=== PATIENT | female | born 1950 ===

== ENCOUNTER 2025-05-09 12:03 | Outpatient (AMB) | payer MEDICARE, SELFPAY ==
--- OUTSIDE RECORDS SUMMARY | 2024-02-22 05:00 | XMS_ITS ---
Author Organization [facility] [address] Address [address] [place] [address] Care Team Providers Care Vehicle Maintenance Technician Name Role Phone VASYL BURGESS Unavailable [phone] Encounters Encounter Location Date Provider Diagnosis [facility] [address] [place] [address] 02/22/2024 AMRYANNEERLINDA BURGESS Plan Of Treatment Next Appt Details Provider Name:VASYL BURGESS, 11:15:00 AM, [address], [place], [address], Progress Notes * GEGEMartin JERRYJalilB: (74 yo F)Acc No.[id number]:02/22/2024 Progress Note Patient: Brigette Guadalupe Provider: Lorena BURGESS MD :1950 A ge:73 Y S ex:Female Date:02/22/2024 Address:[address], [facility] Care Plan Details* * Electronic signature of TEO BURGESS on 05/09/2025 at 06:24 PM EST Sign off status: Pending * Provider: Lorena BURGESS MD Date: 0 02/22/2024 Generated for Marshall ford/Shade/eTransmitting on: 1 07/10/2024 06:24 PM EST
--- OUTSIDE RECORDS SUMMARY | 2025-03-06 05:15 | XMS_ITS ---
Author Organization [facility] [address] Address [address] [place] [address] Care Team Providers Care Battery Container Tester Name Role Phone VASYL BURGESS Unavailable [phone] Encounters Encounter Location Date Provider Diagnosis [facility] [address] [place] [address] 03/06/2025 MARYANNEERLINDA BURGESS Plan Of Treatment Next Appt Details Provider Name:VASYL BURGESS, 11:15:00 AM, [address], [place], [address], Progress Notes * GEGEMartin BONILLAJalilB: 9 (74 yo F)Acc No.[id number]:03/06/2025 Progress Note Patient: Brigette Guadalupe Provider: Lorena BURGESS MD :1950 A ge:74 Y S ex:Female Date:03/06/2025 Address:[address], [facility] Care Plan Details* * Electronic signature of TEO BURGESS on 05/09/2025 at 06:24 PM EST Sign off status: Pending * Provider: Lorena BURGESS MD Date: Generated for Marshall ford/Shade/eTángelasmitting on: 07/10/2024 06:24 PM EST
--- NOTE | 2025-05-09 12:06 | A.OFFVIS_ITS ---
Vital Signs 05/09/25 12:40 BP 127/85 Position Sitting Pulse 87 Intake Visit Reasons: 6M DEMENTIA Allergies benzonatate Allergy (Unknown, Verified 05/09/25 12:16) Unknown codeine Allergy (Unknown, Verified 05/09/25 12:16) Unknown divalproex sodium (From Depakote) Allergy (Unknown, Verified 05/09/25 12:16) Unknown furosemide Allergy (Unknown, Verified 05/09/25 12:16) Unknown gabapentin Allergy (Unknown, Verified 05/09/25 12:16) Unknown levofloxacin (From Levaquin) Allergy (Unknown, Verified 05/09/25 12:16) Unknown lisinopril (From Zestril) Allergy (Unknown, Verified 05/09/25 12:16) Unknown Penicillins Allergy (Unknown, Verified 05/09/25 12:16) Unknown prednisone Allergy (Unknown, Verified 05/09/25 12:16) Unknown Sulfa (Sulfonamide Antibiotics) Allergy (Unknown, Verified 05/09/25 12:16) Unknown triamterene Allergy (Unknown, Verified 05/09/25 12:16) Unknown Medication List - Last Reconciled 05/09/25 by Carolann Riddle, KUSHAL alprazolam 0.5 mg PO BID 90 days atenolol 50 mg PO BID atorvastatin 20 mg PO DAILY bumetanide mg PO dapagliflozin propanediol (Farxiga) 5 mg PO DAILY estradiol 1 mg PO DAILY irbesartan 150 mg PO DAILY levothyroxine 75 mcg PO QAM pantoprazole 40 mg PO DAILY potassium chloride ER 20 mEq PO DAILY rivaroxaban (Xarelto) 20 mg PO DAILY spironolactone 25 mg PO DAILY HPI Comments Details: She was here with new concern. She reports passing out at home on 05/05/2025. She was talking to her while making the bed when her noticed that she suddenly stopped talking, fell forward onto the bed and then slid off onto the ground. She did not hit her head. She remembers coming to and hearing her 's voice, but everything was black. She is unsure how long she passed out for, but was very brief, likely few seconds to less than a minute. She was very tired afterward, but no confusion. No tongue bite or incontinence. She denies any associated symptoms such as dizziness, chest pain, or palpitations. She says her defibrillator did not go off. She is apparently due for a reading soon with cardiology. She denies any episodes of passing out in the past. No further episodes. She also complains of a static ?hash ?sound in her ears that started around 08/2024 and is fairly constant. The noise is more noticeable when it is quiet. No change in hearing. Tremors were stable. No functional impairment. No difficulty eating, drinking, swallowing. She was under some stress related to her family. Increased photosensitivity ongoing after dilated eye exam with 1% tropicamide and 2.5% phenylephrine. Had trouble looking at bright lights, like headlights or brake lights on cars, especially at night. No double vision, blurred vision, or issues with vision otherwise. Her is very suspicious and sometimes keeps threatening divorce. She is having short term memory problems. Had defib. replaced and since then her memory is worse. Has some word searching difficulties. Had a cardiac arrest in November 2018 at the [facility] and has pacemaker and defib. She had a cardiac arrest with coma in April of 2010. She had a sudden onset of garbled speech and difficulty swallowing water on January 09, 2014 shortly after waking up. She had 2 CAT scans of the head and a carotid ultrasound. CTA of neck and brain was normal. CT brain showed old inferior right occipital infarct. Her symptoms improved over several hours and she feels fine and back to normal. She has an implanted defibrillator pacemaker. She has no previous history of stroke or TIA. [facility] Medical History (Updated 05/09/25 @ 12:40 by Carolann Riddle CNP) Hypertension Hypercholesteremia Hypothyroidism Migraine History of AL (myocardial infarction) MCI (mild cognitive impairment) Cerebral artery occlusion with cerebral infarction Tremor Surgical History (Updated 05/09/25 @ 12:13 by Carolann Riddle CNP) S/P ICD (internal cardiac defibrillator) procedure Review of Systems Const Denies chills, Denies daytime sleepiness, Denies difficulty sleeping, Reports fatigue, Denies fever(s), Denies frequent falls, Denies headache(s), Denies increased appetite, Denies poor appetite, Denies snoring, Denies weakness, Denies weight gain and Denies weight loss Eyes Denies loss of vision ENT Denies vertigo, Denies dizziness, Denies headache(s), Denies neck pain and Reports tinnitus Card Denies chest pain at rest, Denies chest pain with activity, Denies syncope, Reports leg edema, Denies palpitations, Denies dyspnea and Denies dyspnea on exertion Resp Denies cough, Denies dyspnea, Denies dyspnea on exertion and Denies snoring GI Denies abdominal pain, Denies constipation, Denies heartburn, Denies diarrhea and Denies nausea Denies urinary frequency, Denies urinary incontinence and Denies urinary urgency Musc Denies abnormal gait, Denies back pain, Denies myalgias, Denies arthralgias, D enies neck pain, Denies numbness and Denies tingling Neuro Denies abnormal gait, Denies vertigo, Denies dizziness, Denies syncope, Denies frequent falls, Denies headache(s), Denies lack of coordination, Denies loss of vision, Denies memory loss, Denies numbness, Denies Other visual disturbances, Denies restless legs, Denies seizure-like activity, Denies tingling, Denies pa resthesias, Reports tremor(s) and Denies weakness Psych Denies anxiety, Denies depression, Denies auditory hallucinations, Denies memory loss and Denies visual hallucinations Endo Reports fatigue and Denies palpitations Physical Exam Vital Signs: Last Vital Signs Pulse 87 05/09/25 12:40 BP 127/85 05/09/25 12:40 Const Other: General Appearance:? normal, in no acute distress. Heart:? S1, S2 normal, no murmurs. Lungs:? clear anteriorly and posteriorly. Musculoskeletal:? normal. Extremities:? no edema. Psych:? alert, oriented, cognitive function intact, cooperative with exam. Neuro Other: Abnormal Neurological Findings:?none.? Mental Status: alert and oriented X 3. Normal attention, orientation, memory, and affect. Cranial Nerves: Pupils are equal, round, and reactive to light. External ocular muscles are intact. Visual vincent are full, no ptosis. Face is symmetrical, no facial weakness or droop. Facial sensations are normal. Tongue protrudes in midline. Palate elevates symmetrically. Shoulder shrugging is normal Motor Examination: Normal muscle tone, bulk and strength. No atrophy or fasciculations. No drift of the extended upper extremities. DTR 2+. Plantars are flexor. Sensory Exam: Normal light touch, temperature, pinprick, vibration, and joint- position sensations. Rhomberg sign is absent. Coordination: No ataxia. No titubation. Gait Exam: Within normal limits. Cerebellar Signs: [id number]-br-haic is okay. Extrapyramidal System: No tremor, rigidity with normal facial expressions. No bradykinesia. No bradyphrenia. Normal arm swing and posture. No propulsion or retropulsion. Speech: Normal. Results Reviewed Results Reviewed: 02/27/20 TSH 9.52 MRI Brain at [facility] 10/30/2024: Multiple WM lesions, old R occipital lobe infarct Assessment & Plan Assessment & Plan (1) Syncope: Code(s): R55 - Syncope and collapse Category: Medical Qualifiers: Syncope type: unspecified Qualified Code(s): R55 - Syncope and collapse Plan: 74-year-old woman with history of cardiac arrest x2 (04/2010, 11/2018), S/P defibrillator, and history of stroke who reports syncopal episode on 05/05/2025. Given her significant cardiac history, possible cardiac etiology should be further evaluated. I recommended 48-72 hour Holter monitor, which she declined despite education, and reports that she is apparently due for device reading w [facility] cardiology soon. I advised her to contact die cast die maker and inform them of this event also. EEG and CTA head/neck ordered. Follow-up after testing or sooner as needed. (2) Tremor: Code(s): R25.1 - Tremor, unspecified Category: Medical Plan: Continue alprazolam 0.5mg 1 tablet twice a day #180 for 90 days. (3) History of cerebral artery occlusion: Code(s): Z86.79 - Personal history of other diseases of the circulatory system Category: Medical (4) History of stroke: Comment: R occipital infarct Code(s): Z86.73 - Personal history of transient ischemic attack (TIA), and cerebral infarction without residual deficits Category: Medical (5) MCI (mild cognitive impairment): Code(s): G31.84 - Mild cognitive impairment of uncertain or unknown etiology Category: Medical Plan . Orders: Orders CT angio head neck Today R55 - Syncope and collapse, Z86.79 - Personal history of other diseases of the circulatory system EEG Routine Today R55 - Syncope and collapse, Z86.79 - Personal history of other diseases of the circulatory system Blood Urea Nitrogen Today R55 - Syncope and collapse Creatinine Today R55 - Syncope and collapse Coding Level of Care Code Est Pt Level 5 (52043) Diagnoses Syncope, unspecified syncope type R55 Syncope type: unspecified Tremor R25.1 History of cerebral artery occlusion Z86.79 History of stroke Z86.73 MCI (mild cognitive impairment) G31.84 Time Spent (min) 45
[2025-05-09 12:40] VITALS: BP 127/85; PULSE 87
--- OUTSIDE RECORDS SUMMARY | 2025-05-09 18:24 | XMS_ITS | Encounter Summary ---
Author Organization [facility] Address [address] [place] [address] Care Team Providers Care Percussion Instrument Repairer Name Role Phone Ro Ramirez MD Primary Care Provider [phone] Encounter Details Date Type Department Care Team ([facility] st Contact Info) Description 03/18/2025 Results Follow-Up Gastroenterology - [place] [address] [facility] [address] [facility] [address] [place] [id number] Yary Moralez PA [address] [place] [address] Social History Tobacco Use Types Packs/Day Years Used Date Smoking Tobacco: Former Smokeless Tobacco: Never Alcohol Use Standard Drinks/Week Comments Yes 0 (1 standard drink = 0.6 oz pur e alcohol) Rarely Interpersonal Safety Answer Date Record ed Physical Abuse Unrecognized value 12/21/2024 Verbal Abuse Unrecognized value 12/21/2024 Comments No Sex and Gender Information Value Date Recorded Sex Assigned at Female 03/18/2025 10:23 AM EDT Legal Sex Female 3:45 AM EST Gender Identity Female 12/11/2024 8:07 AM EDT Sexual Orientation Not on file documented as of this encounter Progress Notes * DEMETRIA Rosas - 04/15/2025 3:43 PM EST Please call patient let her know that I had a chance to go over her CAT scan of abdomen/pelvis, andit was pretty good from GI standpoint, she did have a mild constipation, there was also some arthritis related to age, but nothing acute. Advised her to increase fluid and fiber intake. TY * DEMETIRA Rosas - 03/18/2025 11:08 AM EDT Please call patient let her know that her kidney function test got a little bit worse from 46 to 41, advised her to be hydrated. Follow-up with PCP. Maybe at some point, she will have to contact PCP to get referral commercial green retrofit architect. I am not sure if she is seeing someone already. TY documented in this encounter Plan of Treatment Upcoming Encounters Date Type Department Care Team (Late st Contact Info) Description 06/27/2025 3:00 PM EST Ancillary Procedure [facility] [address] [facility] [address] [place] [address] 10/02/2025 1:20 PM EDT Office Visit Gastroenterology - [address] [facility] [address] [place] [address] Yary Moralez PA [address] [facility] [address] [place] [address] documented as of this encounter Visit Diagnoses Not on filedocumented in this encounter Care Teams Percussion Instrument Repairer Relationship Specialty Start Date End Date Ro Ramirez MD [address] [place] [address] PCP - General Internal Medicine 09/24/24 documented as of this encounter
--- OUTSIDE RECORDS SUMMARY | 2025-05-09 18:24 | XMS_ITS | Continuity of Care Document ---
Author Organization [facility] [address] [place] [address] Phone [phone] Social History Type Date Description Comments Sex Female Sex Unknown Medical Devices Description No Information Available Encounters Description No Information Available Assessments Description No Information Available Plan of Treatment No Information Available Functional Status Description No Information Available Mental Status Description No Information Available Referrals Description No Information Available
--- OUTSIDE RECORDS SUMMARY | 2025-05-09 18:24 | XMS_ITS | Patient Health Record ---
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 doctors appointments. #Patient reports chronic epigastric discomfort, will be getting H. pylori testing as well as be making an appointment with a GI. She gives a vague history of seeing a GI but not recalling the recommendation. On the note from GI it seems she was recommended for follow-up after H. pylori testing. #Patient had therapeutic right-sided thoracocentesis for right-sided effusion in January 2021,She is established with Dr Monroy. #Hypothyroidism,Ad vised patient to take the medication first thing in the morning empty stomach and avoid anything to eat or drink for 45 minutes. Patient has been taking the medication along with other pills at nighttime. TSH is elevated at 3.4, patient has noticed her hair falling out. We are increasing the dose from 50 mcg to 75 mcg on February 09 with follow-up in 2 months. #Past medical history of cardiac arrest twiceStatus post pacemaker placement, status post pacemaker. established with tariff compiler. #Gives history of stroke with residual weakness.Is established with neurologist. 10/31/2024 Epigastric pain (ICD-10 - R10.13) Patient lives with her , has a son living in [place] and grandchildren. Patient reports getting involved with the grandkids, taking them to their doctors appointments. #Patient reports chronic epigastric discomfort, will be getting H. pylori testing as well as be making an appointment with a GI. She gives a vague history of seeing a GI but not recalling the recommendation. On the note from GI it seems she was recommended for follow-up after H. pylori testing. She never had the H. pylori test done says she is currently on pantoprazole and is unable to come off at all for more than 2 days. She has an upcoming appointment with GI for follow-up. She will be seen for abdominal discomfort/epigast niurka pain and weight loss. #Patient had therapeutic right-sided thoracocentesis for right-sided effusion in January 2021,She is established with Dr Monroy.She gets follow-up CAT scan chest. #Hypothyroidism,Ad vised patient to take the medication first thing in the morning empty stomach and avoid anything to eat or drink for 45 minutes. Patient has been taking the medication along with other pills at nighttime. TSH within within normal limits T4 slightly elevated, recommended patient to take levothyroxine 75 mcg 6 days a week instead of 7 days a week/discussed in October 2024. #Past medical history of cardiac arrest twiceStatus post pacemaker placement, status post pacemaker. established with tariff compiler. #Gives history of stroke with residual weakness.Is established with neurologist.Recent ly has vision issues and had an MRI yesterday, report is still pending. 10/31/2024 Weight loss (ICD-10 - R63.4) Patient lives with her , has a son living in [place] and grandchildren. Patient reports getting involved with the grandkids, taking them to their doctors appointments. #Patient reports chronic epigastric discomfort, will be getting H. pylori testing as well as be making an appointment with a GI. She gives a vague history of seeing a GI but not recalling the recommendation. On the note from GI it seems she was recommended for follow-up after H. pylori testing. She never had the H. pylori test done says she is currently on pantoprazole and is unable to come off at all for more than 2 days. She has an upcoming appointment with GI for follow-up. She will be seen for abdominal discomfort/epigast niurka pain and weight loss. #Patient had therapeutic right-sided thoracocentesis for right-sided effusion in January 2021,She is established with Dr Monroy.She gets follow-up CAT scan chest. #Hypothyroidism,Ad vised patient to take the medication first thing in the morning empty stomach and avoid anything to eat or drink for 45 minutes. Patient has been taking the medication along with other pills at nighttime. TSH within within normal limits T4 slightly elevated, recommended patient to take levothyroxine 75 mcg 6 days a week instead of 7 days a week/discussed in October 2024. #Past medical history of cardiac arrest twiceStatus post pacemaker placement, status post pacemaker. established with tariff compiler. #Gives history of stroke with residual weakness.Is established with neurologist.Recent ly has vision issues and had an MRI yesterday, report is still pending. 09/19/2024 Magnesium deficiency (ICD-10 - E61.2) Patient lives with her , has a son living in [place] and grandchildren. Patient reports getting involved with the grandkids, taking them to their doctors appointments. #Patient reports chronic epigastric discomfort, will be getting H. pylori testing as well as be making an appointment with a GI. She gives a vague history of seeing a GI but not recalling the recommendation. On the note from GI it seems she was recommended for follow-up after H. pylori testing. #Patient had therapeutic right-sided thoracocentesis for right-sided effusion in January 2021,She is established with Dr Monroy. #Hypothyroidism,Ad vised patient to take the medication first thing in the morning empty stomach and avoid anything to eat or drink for 45 minutes. Patient has been taking the medication along with other pills at nighttime. TSH is elevated at 3.4, patient has noticed her hair falling out. We are increasing the dose from 50 mcg to 75 mcg on February 09 with follow-up in 2 months. #Past medical history of cardiac arrest twiceStatus post pacemaker placement, status post pacemaker. established with tariff compiler. #Gives history of stroke with residual weakness.Is established with neurologist. 09/19/2024 Elevated C-reactive protein (CRP) (ICD-10 - R79.82) Patient lives with her , has a son living in [place] and grandchildren. Patient reports getting involved with the grandkids, taking them to their doctors appointments. #Patient reports chronic epigastric discomfort, will be getting H. pylori testing as well as be making an appointment with a GI. She gives a vague history of seeing a GI but not recalling the recommendation. On the note from GI it seems she was recommended for follow-up after H. pylori testing. #Patient had therapeutic right-sided thoracocentesis for right-sided effusion in January 2021,She is established with Dr Monroy. #Hypothyroidism,Ad vised patient to take the medication first thing in the morning empty stomach and avoid anything to eat or drink for 45 minutes. Patient has been taking the medication along with other pills at nighttime. TSH is elevated at 3.4, patient has noticed her hair falling out. We are increasing the dose from 50 mcg to 75 mcg on February 09 with follow-up in 2 months. #Past medical history of cardiac arrest twiceStatus post pacemaker placement, status post pacemaker. established with tariff compiler. #Gives history of stroke with residual weakness.Is established with neurologist. 09/19/2024 Adult general medical exam (ICD-10 - Z00.00) Patient lives with her , has a son living in [place] and grandchildren. Patient reports getting involved with the grandkids, taking them to their doctors appointments. #Patient reports chronic epigastric discomfort, will be getting H. pylori testing as well as be making an appointment with a GI. She gives a vague history of seeing a GI but not recalling the recommendation. On the note from GI it seems she was recommended for follow-up after H. pylori testing. #Patient had therapeutic right-sided thoracocentesis for right-sided effusion in January 2021,She is established with Dr Monroy. #Hypothyroidism,Ad vised patient to take the medication first thing in the morning empty stomach and avoid anything to eat or drink for 45 minutes. Patient has been taking the medication along with other pills at nighttime. TSH is elevated at 3.4, patient has noticed her hair falling out. We are increasing the dose from 50 mcg to 75 mcg on February 09 with follow-up in 2 months. #Past medical history of cardiac arrest twiceStatus post pacemaker placement, status post pacemaker. established with tariff compiler. #Gives history of stroke with residual weakness.Is established with neurologist. 09/19/2024 Vitamin D deficiency, unspecified (ICD-10 - E55.9) Patient lives with her , has a son living in [place] and grandchildren. Patient reports getting involved with the grandkids, taking them to their doctors appointments. #Patient reports chronic epigastric discomfort, will be getting H. pylori testing as well as be making an appointment with a GI. She gives a vague history of seeing a GI but not recalling the recommendation. On the note from GI it seems she was recommended for follow-up after H. pylori testing. #Patient had therapeutic right-sided thoracocentesis for right-sided effusion in January 2021,She is established with Dr Monroy. #Hypothyroidism,Ad vised patient to take the medication first thing in the morning empty stomach and avoid anything to eat or drink for 45 minutes. Patient has been taking the medication along with other pills at nighttime. TSH is elevated at 3.4, patient has noticed her hair falling out. We are increasing the dose from 50 mcg to 75 mcg on February 09 with follow-up in 2 months. #Past medical history of cardiac arrest twiceStatus post pacemaker placement, status post pacemaker. established with tariff compiler. #Gives history of stroke with residual weakness.Is established with neurologist. 09/19/2024 Epigastric pain (ICD-10 - R10.13) Patient lives with her , has a son living in [place] and grandchildren. Patient reports getting involved with the grandkids, taking them to their doctors appointments. #Patient reports chronic epigastric discomfort, will be getting H. pylori testing as well as be making an appointment with a GI. She gives a vague history of seeing a GI but not recalling the recommendation. On the note from GI it seems she was recommended for follow-up after H. pylori testing. #Patient had therapeutic right-sided thoracocentesis for right-sided effusion in January 2021,She is established with Dr Monroy. #Hypothyroidism,Ad vised patient to take the medication first thing in the morning empty stomach and avoid anything to eat or drink for 45 minutes. Patient has been taking the medication along with other pills at nighttime. TSH is elevated at 3.4, patient has noticed her hair falling out. We are increasing the dose from 50 mcg to 75 mcg on February 09 with follow-up in 2 months. #Past medical history of cardiac arrest twiceStatus post pacemaker placement, status post pacemaker. established with tariff compiler. #Gives history of stroke with residual weakness.Is established with neurologist. Plan Of Treatment Pending Test Test Name Order Date Ultrasound : Abdomen 09/04/2020 Bone Density 10/12/2021 COMPREHENSIVE METABOLIC PANEL 10/10/2020 HEMOGLOBIN A1C 10/10/2020 MAGNESIUM 09/09/2020 POTASSIUM 11/25/2020 POTASSIUM 09/09/2020 T3, FREE 10/10/2020 T4, FREE 10/10/2020 TSH 10/10/2020 BNP (B -Type Natriuretic Peptide) 2021 CT Abdomen w and w/o Contrast 12/24/2020 CT Chest w and w/o Contrast 03/16/2021 CT Chest w/o Contrast 03/17/2021 XR Chest 2 Views 08/21/2021 XR Foot 2 Views RT 09/22/2022 LIPID PANEL, STANDARD 03/28/2023 LIPID PANEL, STANDARD 10/12/2021 COMPREHENSIVE METABOLIC PANEL 09/22/2022 COMPREHENSIVE METABOLIC PANEL 06/23/2022 COMPREHENSIVE METABOLIC PANEL 10/12/2021 COMPREHENSIVE METABOLIC PANEL 08/21/2021 COMPREHENSIVE METABOLIC PANEL 09/19/2024 COMPREHENSIVE METABOLIC PANEL 03/28/2023 COMPREHENSIVE METABOLIC PANEL 10/19/2023 COMPREHENSIVE METABOLIC PANEL 03/14/2024 COMPREHENSIVE METABOLIC PANEL 10/31/2024 CREATININE 10/19/2023 POTASSIUM 03/28/2023 POTASSIUM 10/19/2023 MAGNESIUM 10/19/2023 MAGNESIUM 08/21/2021 MAGNESIUM 03/28/2023 MAGNESIUM 10/31/2024 CBC (INCLUDES DIFF/PLT) 10/19/2023 CBC (INCLUDES DIFF/PLT) 03/28/2023 CBC (INCLUDES DIFF/PLT) 09/19/2024 CBC (INCLUDES DIFF/PLT) 08/21/2021 CBC (INCLUDES DIFF/PLT) 10/12/2021 CBC (INCLUDES DIFF/PLT) 06/23/2022 HEMOGLOBIN A1c 10/12/2021 T4, FREE 10/12/2021 T4, FREE 02/09/2023 T4, FREE 01/23/2024 TSH 01/25/2024 TSH 03/14/2024 TSH 02/09/2023 TSH 09/22/2022 TSH 06/23/2022 TSH 10/12/2021 T3, FREE 02/09/2023 T3, FREE 01/23/2024 VITAMIN D,25-OH,TOTAL,IA 09/19/2024 VITAMIN D,25-OH,TOTAL,IA 10/19/2023 VITAMIN D,25-OH,TOTAL,IA 09/22/2022 VITAMIN D,25-OH,TOTAL,IA 10/12/2021 B TYPE NATRIURETIC PEPTIDE (BNP) 022 H PYLORI BREATH TEST 09/19/2024 TSH+T3+Free T4+T3 Free 10/31/2024 TSH+T3+Free T4+T3 Free 09/19/2024 Future Test Test Name Order Date BASIC METABOLIC PANEL 02/25/2021 TSH 02/25/2021 Next Appt Details Provider Name:VASYL BURGESS, 11:15:00 AM, [address], [place], [address], Insurance Providers Payer Name Payer Address Payer Phone Subscriber Number Group Number Insured Name Patient Relationship to Insured Coverage Start Date Coverage End Date Medicare Part B [id number] [address] [place] [address] [phone] [id number] Brigette Kahn Self - patient is the insured 4 [facility] [address] [place] [address] [id number] Brigette Kahn Self - patient is the insured Medical (General) History Medical History History ICD Code hypertension hyperlipidemia seasonal allergies asthma pacemaker multiple sclerosis Surgical History Surgery Date(Month/Year) cardiac pacemeker 2018 hysterectomy Hospitalization History Reason Date(Month/Year) heart attack cardiac arrests fall/concussion 02/2023
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
--- OUTSIDE RECORDS SUMMARY | 2025-05-09 18:26 | XMS_ITS ---
Author Name [facility] Organization Unknown Encounters Encounter Type Encounter Reason Primary Diagnosis Location Date Ambulatory [facility] 12/25/2024 Ambulatory [facility] 03/27/2024 Care Team Organization Name Specialty Phone Email Start Date End Da te [facility] 2024 [facility] 12/15/2023 [facility] 10/04/2022
--- OUTSIDE RECORDS SUMMARY | 2025-05-09 18:26 | XMS_ITS | Data Portability ---
Author Organization [facility], Main Office Address [address] [place] [address] Care Team Providers Care Cyber Crime Investigator Name Role Phone CABRERA GERMAIN Primary Care Provider [phone] DELIA FALLON Adjunct Professor Of English FRANCISCO ANDRADE Orthopedic Surgeon [phone] AMELIE JONES Neurologist [phone] DUKE LUCAS Powerhouse Mechanic KESHIA FRANCISCO JR Antisqueak Worker [phone] Assessment Encounter Date Assessment Date Assessment LastModified by Organization Details LastModified Time 08/16/2019 08/16/2019 This service was provided using telemedicine. Patient consented to phone/video visit. Patient was located at home. Provider was located at home. No other persons participated in the telemedicine visit except for the patient unless otherwise indicated here. [email or web address] Not available 08/16/2019 11:23:57 06/18/2020 06/18/2020 This service was provided using telemedicine. Patient consented to telephone visit Patient was located at at home Provider was located in the office. No other persons participated in the telemedicine visit except for the patient unless otherwise indicated here. Total time of visit was 23 minutes. [email or web address] Not available 06/18/2020 13:42:54 Plan of Treatment Reminders Order Date Submit Date Provider Last Modified By Organization Details Last Modified Time Details Appointments None record ed. Lab BMP, serum or plasma 2020 021 GERARDO [facility] (Centralized Electronic Ordering - All Locations), Patient Can Go To The Location Of Their Choice, [id number] 20:53:33 CBC w/ auto diff 2020 GERARDO [facility] (Centralized Electronic Ordering - All Locations), Patient Can Go To The Location Of Their Choice, 19:57:23 hepati c functi on panel, serum 2020 GERARDO [facility] (Centralized Electronic Ordering - All Locations), Patient Can Go To The Location Of Their Choice, 20:53:35 Referral gastro entero logist referr al - epigas tric pain despit e pantop razole 2020 jennifer Francisco Jr, MD, [address] [place] [address] [place], [address], 14:36:13 podiat rist referr al - right foot planta r fascia tis. evalua te and treat [email or web address] [facility], [address] [facility], [facility] [address], [place], [address], 14:13:57 physic al therap ist referr al - right foot planta r fascia tis, evalua te and treat, unable to get out of house please provid e home physic al therap y 2020 021 [email or web address] [facility], [address] [place], [address], 09:16:15 gastro entero logist referr al - mid abdomi nal pain, rul eout ulcer, nl CT abd 2019 020 jennifer Francisco Jr, MD, [address] [place] [address] [place], [address], 0 09:43:35 gastro entero logist referr al - abdomi nal pain ,weigh t loss 2019 021 [email or web address] Jennifer Castillo MD, [address] [facility] [address], [place], [address], 1 09:49:13 Procedures None record ed. Surgeries None record ed. Imaging electr ocardi ogram 2020 021 esther sims In-Office Order, Internal Use Only DO Not Attach Compendium DO Not Attach Compendium, Do Not Delete/merge, [id number] 1 13:46:01 US, abdome n - RUQ and mid epigat niurka pain rule out galbla dder pathol ogy 2020 021 [facility] (Ultrasound), [address] [place], [address], 1 11:02:00 CT, abdome n + pelvis , w/ contra st - abdomi nal pain, weight loss, rule out mass 2019 020 [facility] (Ct Scan), [address] [place], [address], 0 22:59:11 Medication Orders pantop razole 40 mg tablet ,delay ed releas e 2020 021 [facility] [address], [address] [place] [address], [address], 1 13:55:34 potass ium chlori de ER 20 mEq tablet ,exten ded releas e 2019 020 esther sims [facility] [address], [address] [place] [address], [address], 0 13:04:49 Patient TargetsNo targets recorded. Patient Instructions Encounter Date Encounter Id Patient Instructions Last Modified By Organization Details Last Modified Time 11/02/2019 [id number] hypothyroidism: care instructions [email or web address] Not available 11/02/2019 14:46:27 12/06/2019 [id number] abdominal pain: care instructions [email or web address] Not available 12/06/2019 15:16:08 high blood pressure: care instructions [email or web address] Not available 12/06/2019 15:16:08 learning about h igh blood pressure [email or web address] Not available 12/06/2019 15:16:08 multiple scleros is (MS): care instructions [email or web address] Not available 12/06/2019 15:16:08 high cholesterol : care instructions [email or web address] Not available 12/06/2019 15:16:08 06/18/2020 [id number] gastroesophageal reflux disease (GERD): care instructions [email or web address] Not available 06/18/2020 13:55:25 Reason for Referral Antisqueak Worker Referral for Upper abdominal pain abdominal pain ,weight loss Referring Physician: Cabrera Germain [facility], Encounter Date: 11/02/2019 Antisqueak Worker Referral for Abdominal pain mid abdominal pain, rul eout ulcer, nl CT abd Referring Physician: Cabrera Germain [facility], Encounter Date: 12/06/2019 Hybrid Car Mechanic Referral for Plan tar fasciitis of right foot right foot plantar fasciatis. evaluate and treat Referring Physician: Cabrera Germain [facility], Encounter Date: 06/18/2020 Physical Therapist Referral for Plantar fasciitis of right foot right foot plantar fasciatis, evaluate and treat, unable to get out of house please provide home physical therapy Referring Physician: Cabrera Germain [facility], Encounter Date: 06/18/2020 Antisqueak Worker Referral for Epigastric pain epigastric pain despite pantoprazole Referring Physician: Cabrera Germain [facility], Encounter Date: 08/07/2020 Results Created Date Observation Date Name Description Value Unit Range Abnormal Flag Note LastModifiedBy Organization Detail LastModifiedTime 07/26/19 20 2019 BMP, serum or plasm a glucose 93 mg/dL (70-99 ) Not Available [facility] (Centralized Electronic Ordering - All Locations) Patient Can Go To The Location Of Their Choice, [id number] 2019 17:46:06 07/26/19 20 2019 BMP, serum or plasm a BUN 14 mg/dL (8-23) Not Available [facility] (Centralized Electronic Ordering - All Locations) Patient Can Go To The Location Of Their Choice, 2019 17:46:07/26/1907/26/2019 BMP, serum or plasm a creatinine 1.0 mg/dL (0.5-1 .0) Not Available [facility] (Centralized Electronic Ordering - All Locations) Patient Can Go To The Location Of Their Choice, 2019 17:46:07/26/1907/26/2019 BMP, serum or plasm a sodium 142 mmol/ L (133-1 45) Not Available [facility] (Centralized Electronic Ordering - All Locations) Patient Can Go To The Location Of Their Choice, 2019 17:46:07/26/1907/26/2019 BMP, serum or plasm a potassium 3.7 mmol/ L (3.6-5 .2) Not Available [facility] (Centralized Electronic Ordering - All Locations) Patient Can Go To The Location Of Their Choice, 2019 17:46:07/26/1907/26/2019 BMP, serum or plasm a chloride 101 mmol/ L (98-10 7) Not Available [facility] (Centralized Electronic Ordering - All Locations) Patient Can Go To The Location Of Their Choice, 2019 17:46:07/26/1907/26/2019 BMP, serum or plasm a bicarbonate 27 mmol/ L (22-29 ) Not Available [facility] (Centralized Electronic Ordering - All Locations) Patient Can Go To The Location Of Their Choice, 2019 17:46:07/26/1907/26/2019 BMP, serum or plasm a anion gap 14 (4-17) Not Available [facility] (Centralized Electronic Ordering - All Locations) Patient Can Go To The Location Of Their Choice, 2019 17:46:07/26/1907/26/2019 BMP, serum or plasm a calcium 8.4 mg/dL (8.6-1 0.5) low Not Available [facility] (Centralized Electronic Ordering - All Locations) Patient Can Go To The Location Of Their Choice, 2019 17:46:07/26/1907/26/2019 BMP, serum or plasm a est GFR non 57 mL/mi n/1.7 3_M2 Creat inine based estim ated glome rular filtr ation rate (eGFR ) is calcu lated using the Chron ic Kidne y Disea se Epide miolo gy Colla borat ion (CKD- EPI). The CKD-E PI creat inine equat ion has not been valid ated in child spencer (<18 years ), pregn ant women or in some racia l or ethni c subgr oups other than Cauca sians and Afric an Ameri cans. Not Available [facility] (Centralized Electronic Ordering - All Locations) Patient Can Go To The Location Of Their Choice, 2019 17:46:06 07/26/1907/26/2019 BMP, serum or plasm a est GFR 66 mL/mi n/1.7 3_M2 Creat inine based estim ated glome rular filtr ation rate (eGFR ) is calcu lated using the Chron ic Kidne y Disea se Epide miolo gy Colla borat ion (CKD- EPI). The CKD-E PI creat inine equat ion has not been valid ated in child spencer (<18 years ), pregn ant women or in some racia l or ethni c subgr oups other than Cauca sians and Afric an Ameri cans. Not Available [facility] (Centralized Electronic Ordering - All Locations) Patient Can Go To The Location Of Their Choice, 2019 17:46:06 07/26/1907/26/2019 T4, free, serum free T4 2.29 NG/dL (0.70- 1.80) high Not Available [facility] (Centralized Electronic Ordering - All Locations) Patient Can Go To The Location Of Their Choice, 2019 17:56:22 07/26/1907/26/2019 TSH, serum or plasm a TSH 3.01 mIU/m L (0.40- 4.00) Not Available [facility] (Centralized Electronic Ordering - All Locations) Patient Can Go To The Location Of Their Choice, 2019 17:56:24 08/15/19 20 08/15/2019 BMP, serum or plasm a glucose 146 mg/dL (70-99 ) high Not Available [facility] (Centralized Electronic Ordering - All Locations) Patient Can Go To The Location Of Their Choice, 08/15/2019 19:10:08/15/1908/15/2019 BMP, serum or plasm a BUN 13 mg/dL (8-23) Not Available [facility] (Centralized Electronic Ordering - All Locations) Patient Can Go To The Location Of Their Choice, 08/15/2019 19:10:08/15/1908/15/2019 BMP, serum or plasm a creatinine 1.0 mg/dL (0.5-1 .0) Not Available [facility] (Centralized Electronic Ordering - All Locations) Patient Can Go To The Location Of Their Choice, 08/15/2019 19:10:08/15/1908/15/2019 BMP, serum or plasm a sodium 143 mmol/ L (133-1 45) Not Available [facility] (Centralized Electronic Ordering - All Locations) Patient Can Go To The Location Of Their Choice, 08/15/2019 19:10:08/15/1908/15/2019 BMP, serum or plasm a potassium 3.5 mmol/ L (3.6-5 .2) low Not Available [facility] (Centralized Electronic Ordering - All Locations) Patient Can Go To The Location Of Their Choice, 08/15/2019 19:10:08/15/1908/15/2019 BMP, serum or plasm a chloride 100 mmol/ L (98-10 7) Not Available [facility] (Centralized Electronic Ordering - All Locations) Patient Can Go To The Location Of Their Choice, 08/15/2019 19:10:08/15/1908/15/2019 BMP, serum or plasm a bicarbonate 31 mmol/ L (22-29 ) high Not Available [facility] (Centralized Electronic Ordering - All Locations) Patient Can Go To The Location Of Their Choice, 08/15/2019 19:10:08/15/1908/15/2019 BMP, serum or plasm a anion gap 12 (4-17) Not Available [facility] (Centralized Electronic Ordering - All Locations) Patient Can Go To The Location Of Their Choice, 08/15/2019 19:10:08/15/1908/15/2019 BMP, serum or plasm a calcium 8.3 mg/dL (8.6-1 0.5) low Not Available [facility] (Centralized Electronic Ordering - All Locations) Patient Can Go To The Location Of Their Choice, 08/15/2019 19:10:16 08/15/1908/15/2019 BMP, serum or plasm a est GFR non 57 mL/mi n/1.7 3_M2 Creat inine based estim ated glome rular filtr ation rate (eGFR ) is calcu lated using the Chron ic Kidne y Disea se Epide miolo gy Colla borat ion (CKD- EPI). The CKD-E PI creat inine equat ion has not been valid ated in child spencer (<18 years ), pregn ant women or in some racia l or ethni c subgr oups other than Cauca sians and Afric an Ameri cans. Not Available [facility] (Centralized Electronic Ordering - All Locations) Patient Can Go To The Location Of Their Choice, 08/15/2019 19:10:16 08/15/1908/15/2019 BMP, serum or plasm a est GFR 66 mL/mi n/1.7 3_M2 Creat inine based estim ated glome rular filtr ation rate (eGFR ) is calcu lated using the Chron ic Kidne y Disea se Epide miolo gy Colla borat ion (CKD- EPI). The CKD-E PI creat inine equat ion has not been valid ated in child spencer (<18 years ), pregn ant women or in some racia l or ethni c subgr oups other than Cauca sians and Afric an Ameri cans. Not Available [facility] (Centralized Electronic Ordering - All Locations) Patient Can Go To The Location Of Their Choice, 08/15/2019 19:10:16 09/27/1909/27/2019 BMP, serum or plasm a glucose 108 mg/dL (70-99 ) high Not Available [facility] (Centralized Electronic Ordering - All Locations) Patient Can Go To The Location Of Their Choice, 09/27/2019 18:35:46 09/27/1909/27/2019 BMP, serum or plasm a BUN 18 mg/dL (8-23) Not Available [facility] (Centralized Electronic Ordering - All Locations) Patient Can Go To The Location Of Their Choice, 09/27/2019 18:35:46 09/27/1909/27/2019 BMP, serum or plasm a creatinine 1.2 mg/dL (0.5-1 .0) high Not Available [facility] (Centralized Electronic Ordering - All Locations) Patient Can Go To The Location Of Their Choice, 09/27/2019 18:35:46 09/27/1909/27/2019 BMP, serum or plasm a sodium 139 mmol/ L (133-1 45) Not Available [facility] (Centralized Electronic Ordering - All Locations) Patient Can Go To The Location Of Their Choice, 09/27/2019 18:35:46 09/27/1909/27/2019 BMP, serum or plasm a potassium 4.0 mmol/ L (3.6-5 .2) Not Available [facility] (Centralized Electronic Ordering - All Locations) Patient Can Go To The Location Of Their Choice, 09/27/2019 18:35:46 09/27/1909/27/2019 BMP, serum or plasm a chloride 98 mmol/ L (98-10 7) Not Available [facility] (Centralized Electronic Ordering - All Locations) Patient Can Go To The Location Of Their Choice, 09/27/2019 18:35:46 09/27/1909/27/2019 BMP, serum or plasm a bicarbonate 28 mmol/ L (22-29 ) Not Available [facility] (Centralized Electronic Ordering - All Locations) Patient Can Go To The Location Of Their Choice, 09/27/2019 18:35:46 09/27/1909/27/2019 BMP, serum or plasm a anion gap 13 (4-17) Not Available [facility] (Centralized Electronic Ordering - All Locations) Patient Can Go To The Location Of Their Choice, 09/27/2019 18:35:46 09/27/1909/27/2019 BMP, serum or plasm a calcium 8.6 mg/dL (8.6-1 0.5) Not Available [facility] (Centralized Electronic Ordering - All Locations) Patient Can Go To The Location Of Their Choice, 09/27/2019 18:35:46 09/27/1909/27/2019 BMP, serum or plasm a est GFR non 45 mL/mi n/1.7 3_M2 Creat inine based estim ated glome rular filtr ation rate (eGFR ) is calcu lated using the Chron ic Kidne y Disea se Epide miolo gy Colla borat ion (CKD- EPI). The CKD-E PI creat inine equat ion has not been valid ated in child spencer (<18 years ), pregn ant women or in some racia l or ethni c subgr oups other than Cauca sians and Afric an Ameri cans. Not Available [facility] (Centralized Electronic Ordering - All Locations) Patient Can Go To The Location Of Their Choice, 09/27/2019 18:35:46 09/27/1909/27/2019 BMP, serum or plasm a est GFR 53 mL/mi n/1.7 3_M2 Creat inine based estim ated glome rular filtr ation rate (eGFR ) is calcu lated using the Chron ic Kidne y Disea se Epide miolo gy Colla borat ion (CKD- EPI). The CKD-E PI creat inine equat ion has not been valid ated in child spencer (<18 years ), pregn ant women or in some racia l or ethni c subgr oups other than Cauca sians and Afric an Ameri cans. Not Available [facility] (Centralized Electronic Ordering - All Locations) Patient Can Go To The Location Of Their Choice, 09/27/2019 18:35:46 11/01/1911/01/2019 potas sium, serum potassium 4.1 mmol/ L (3.6-5 .2) Not Available [facility] (Centralized Electronic Ordering - All Locations) Patient Can Go To The Location Of Their Choice, 11/01/2019 20:38:46 11/01/1911/01/2019 BMP, serum or plasm a glucose 108 mg/dL (70-99 ) high Not Available [facility] (Centralized Electronic Ordering - All Locations) Patient Can Go To The Location Of Their Choice, 11/01/2019 20:38:54 11/01/1911/01/2019 BMP, serum or plasm a BUN 18 mg/dL (8-23) Not Available [facility] (Centralized Electronic Ordering - All Locations) Patient Can Go To The Location Of Their Choice, 11/01/2019 20:38:54 11/01/1911/01/2019 BMP, serum or plasm a creatinine 1.1 mg/dL (0.5-1 .0) high Not Available [facility] (Centralized Electronic Ordering - All Locations) Patient Can Go To The Location Of Their Choice, 11/01/2019 20:38:54 11/01/1911/01/2019 BMP, serum or plasm a sodium 141 mmol/ L (133-1 45) Not Available [facility] (Centralized Electronic Ordering - All Locations) Patient Can Go To The Location Of Their Choice, 11/01/2019 20:38:54 11/01/1911/01/2019 BMP, serum or plasm a potassium 4.1 mmol/ L (3.6-5 .2) Not Available [facility] (Centralized Electronic Ordering - All Locations) Patient Can Go To The Location Of Their Choice, 11/01/2019 20:38:54 11/01/1911/01/2019 BMP, serum or plasm a chloride 99 mmol/ L (98-10 7) Not Available [facility] (Centralized Electronic Ordering - All Locations) Patient Can Go To The Location Of Their Choice, 11/01/2019 20:38:54 11/01/1911/01/2019 BMP, serum or plasm a bicarbonate 27 mmol/ L (22-29 ) Not Available [facility] (Centralized Electronic Ordering - All Locations) Patient Can Go To The Location Of Their Choice, 11/01/2019 20:38:54 11/01/1911/01/2019 BMP, serum or plasm a anion gap 15 (4-17) Not Available [facility] (Centralized Electronic Ordering - All Locations) Patient Can Go To The Location Of Their Choice, 11/01/2019 20:38:54 11/01/1911/01/2019 BMP, serum or plasm a calcium 8.9 mg/dL (8.6-1 0.5) Not Available [facility] (Centralized Electronic Ordering - All Locations) Patient Can Go To The Location Of Their Choice, 11/01/2019 20:38:54 11/01/1911/01/2019 BMP, serum or plasm a est GFR non 50 mL/mi n/1.7 3_M2 Creat inine based estim ated glome rular filtr ation rate (eGFR ) is calcu lated using the Chron ic Kidne y Disea se Epide miolo gy Colla borat ion (CKD- EPI). The CKD-E PI creat inine equat ion has not been valid ated in child spencer (<18 years ), pregn ant women or in some racia l or ethni c subgr oups other than Cauca sians and Afric an Ameri cans. Not Available [facility] (Centralized Electronic Ordering - All Locations) Patient Can Go To The Location Of Their Choice, 11/01/2019 20:38:54 11/01/1911/01/2019 BMP, serum or plasm a est GFR 58 mL/mi n/1.7 3_M2 Creat inine based estim ated glome rular filtr ation rate (eGFR ) is calcu lated using the Chron ic Kidne y Disea se Epide miolo gy Colla borat ion (CKD- EPI). The CKD-E PI creat inine equat ion has not been valid ated in child spencer (<18 years ), pregn ant women or in some racia l or ethni c subgr oups other than Cauca sians and Afric an Ameri cans. Not Available [facility] (Centralized Electronic Ordering - All Locations) Patient Can Go To The Location Of Their Choice, 11/01/2019 20:38:54 11/01/1911/02/2019 hepat ic funct ion panel , serum bilirubin,to guadalupe 0.6 mg/dL (0-1.2 ) Not Available [facility] ([facility]ized Electronic Ordering - All Locations) Patient Can Go To The Location Of Their Choice, 11/02/2019 18:29:37 11/01/1911/02/2019 hepat ic funct ion panel , serum bilirubin, direct 0.2 mg/dL (0-0.3 ) Not Available [facility] ([facility]ized Electronic Ordering - All Locations) Patient Can Go To The Location Of Their Choice, 11/02/2019 18:29:37 11/01/1911/02/2019 hepat ic funct ion panel , serum indirect bilirubin 0.4 mg/dL (0.0-0 .7) Not Available [facility] ([facility]ized Electronic Ordering - All Locations) Patient Can Go To The Location Of Their Choice, 11/02/2019 18:29:37 11/01/1911/02/2019 hepat ic funct ion panel , serum albumin 3.7 gm/dL (3.4-4 .8) Not Available [facility] (Centralized Electronic Ordering - All Locations) Patient Can Go To The Location Of Their Choice, 11/02/2019 18:29:37 11/01/1911/02/2019 hepat ic funct ion panel , serum AST 45 U/L (0-32) high Not Available [facility] (Centralized Electronic Ordering - All Locations) Patient Can Go To The Location Of Their Choice, 11/02/2019 18:29:37 11/01/1911/02/2019 hepat ic funct ion panel , serum ALT 34 U/L (0-33) high Not Available [facility] ([facility]ized Electronic Ordering - All Locations) Patient Can Go To The Location Of Their Choice, 11/02/2019 18:29:37 11/01/1911/02/2019 hepat ic funct ion panel , serum alk phos 138 U/L (35-10 4) high Not Available [facility] ([facility]ized Electronic Ordering - All Locations) Patient Can Go To The Location Of Their Choice, 11/02/2019 18:29:37 11/01/1911/02/2019 hepat ic funct ion panel , serum total protein 7.0 gm/dL (6.2-8 .2) Not Available [facility] ([facility]ized Electronic Ordering - All Locations) Patient Can Go To The Location Of Their Choice, 11/02/2019 18:29:37 02/26/2002/26/2020 BMP, serum or plasm a glucose 99 mg/dL (70-99 ) Not Available [facility] ([facility]ized Electronic Ordering - All Locations) Patient Can Go To The Location Of Their Choice, 02/26/2020 21:51:35 02/26/2002/26/2020 BMP, serum or plasm a BUN 21 mg/dL (8-23) Not Available [facility] ([facility]ized Electronic Ordering - All Locations) Patient Can Go To The Location Of Their Choice, 02/26/2020 21:51:35 02/26/2002/26/2020 BMP, serum or plasm a creatinine 1.5 mg/dL (0.5-1 .0) high Not Available [facility] ([facility]ized Electronic Ordering - All Locations) Patient Can Go To The Location Of Their Choice, 02/26/2020 21:51:35 02/26/2002/26/2020 BMP, serum or plasm a sodium 142 mmol/ L (133-1 45) Not Available [facility] (Centralized Electronic Ordering - All Locations) Patient Can Go To The Location Of Their Choice, 02/26/2020 21:51:35 02/26/2002/26/2020 BMP, serum or plasm a potassium 4.7 mmol/ L (3.6-5 .2) Not Available [facility] (Centralized Electronic Ordering - All Locations) Patient Can Go To The Location Of Their Choice, 02/26/2020 21:51:35 02/26/2002/26/2020 BMP, serum or plasm a chloride 99 mmol/ L (98-10 7) Not Available [facility] ([facility]ized Electronic Ordering - All Locations) Patient Can Go To The Location Of Their Choice, 02/26/2020 21:51:35 02/26/2002/26/2020 BMP, serum or plasm a bicarbonate 31 mmol/ L (22-29 ) high Not Available [facility] ([facility]ized Electronic Ordering - All Locations) Patient Can Go To The Location Of Their Choice, 02/26/2020 21:51:35 02/26/2002/26/2020 BMP, serum or plasm a anion gap 12 (4-17) Not Available [facility] ([facility]ized Electronic Ordering - All Locations) Patient Can Go To The Location Of Their Choice, 02/26/2020 21:51:35 02/26/2002/26/2020 BMP, serum or plasm a calcium 8.8 mg/dL (8.6-1 0.5) Not Available [facility] ([facility]ized Electronic Ordering - All Locations) Patient Can Go To The Location Of Their Choice, 02/26/2020 21:51:35 02/26/2002/26/2020 BMP, serum or plasm a est GFR non 34 mL/mi n/1.7 3_M2 Creat inine based estim ated glome rular filtr ation rate (eGFR ) is calcu lated using the Chron ic Kidne y Disea se Epide miolo gy Colla borat ion (CKD- EPI). The CKD-E PI creat inine equat ion has not been valid ated in child spencre (<18 years ), pregn ant women or in some racia l or ethni c subgr oups other than Cauca sians and Afric an Ameri cans. Not Available [facility] (Centralized Electronic Ordering - All Locations) Patient Can Go To The Location Of Their Choice, 02/26/2020 21:51:35 02/26/2002/26/2020 BMP, serum or plasm a est GFR 40 mL/mi n/1.7 3_M2 Creat inine based estim ated glome rular filtr ation rate (eGFR ) is calcu lated using the Chron ic Kidne y Disea se Epide miolo gy Colla borat ion (CKD- EPI). The CKD-E PI creat inine equat ion has not been valid ated in child spencer (<18 years ), pregn ant women or in some racia l or ethni c subgr oups other than Cauca sians and Afric an Ameri cans. Not Available [facility] (Centralized Electronic Ordering - All Locations) Patient Can Go To The Location Of Their Choice, 02/26/2020 21:51:35 02/26/2002/27/2020 hepat ic funct ion panel , serum bilirubin,to guadalupe 0.5 mg/dL (0-1.2 ) Not Available [facility] (Centralized Electronic Ordering - All Locations) Patient Can Go To The Location Of Their Choice, 02/27/2020 06:03:45 02/26/2002/27/2020 hepat ic funct ion panel , serum bilirubin, direct <0.1 mg/dL (0-0.3 ) Not Available [facility] ([facility]ized Electronic Ordering - All Locations) Patient Can Go To The Location Of Their Choice, 02/27/2020 06:03:45 02/26/2002/27/2020 hepat ic funct ion panel , serum indirect bilirubin mg/dL (0.0-0 .7) Direc t bilir ubin is less than the measu reabl e limit . There fore, indir ect bilir ubin canno t be calcu lated . Not Available [facility] (Centralized Electronic Ordering - All Locations) Patient Can Go To The Location Of Their Choice, 02/27/2020 06:03:45 02/26/2002/27/2020 hepat ic funct ion panel , serum albumin 3.8 gm/dL (3.4-4 .8) Not Available [facility] (Centralized Electronic Ordering - All Locations) Patient Can Go To The Location Of Their Choice, 02/27/2020 06:03:45 02/26/2002/27/2020 hepat ic funct ion panel , serum AST 40 U/L (0-32) high Not Available [facility] (Centralized Electronic Ordering - All Locations) Patient Can Go To The Location Of Their Choice, 02/27/2020 06:03:45 02/26/2002/27/2020 hepat ic funct ion panel , serum ALT 26 U/L (0-33) Not Available [facility] (Centralized Electronic Ordering - All Locations) Patient Can Go To The Location Of Their Choice, 02/27/2020 06:03:45 02/26/2002/27/2020 hepat ic funct ion panel , serum alk phos 126 U/L (35-10 4) high Not Available [facility] (Centralized Electronic Ordering - All Locations) Patient Can Go To The Location Of Their Choice, 02/27/2020 06:03:45 02/26/2002/27/2020 hepat ic funct ion panel , serum total protein 6.9 gm/dL (6.2-8 .2) Not Available [facility] (Centralized Electronic Ordering - All Locations) Patient Can Go To The Location Of Their Choice, 02/27/2020 06:03:45 08/08/1908/07/2020 CBC w/ auto diff WBC 9.1 K/mm3 (4.0-1 1.0) Not Available [facility] (Centralized Electronic Ordering - All Locations) Patient Can Go To The Location Of Their Choice, 08/07/2020 19:57:23 08/08/1908/07/2020 CBC w/ auto diff RBC 4.33 M/mm3 (4.20- 5.40) Not Available [facility] (Centralized Electronic Ordering - All Locations) Patient Can Go To The Location Of Their Choice, 08/07/2020 19:57:23 08/08/1908/07/2020 CBC w/ auto diff HGB 11.7 gm/dL (11.7- 15.5) Not Available [facility] (Centralized Electronic Ordering - All Locations) Patient Can Go To The Location Of Their Choice, 08/07/2020 19:57:23 08/08/1908/07/2020 CBC w/ auto diff HCT 38.6 % (35.7- 45.8) Not Available [facility] (Centralized Electronic Ordering - All Locations) Patient Can Go To The Location Of Their Choice, 08/07/2020 19:57:23 08/08/1908/07/2020 CBC w/ auto diff MCV 89.1 fL (80.0- 100.0) Not Available [facility] (Centralized Electronic Ordering - All Locations) Patient Can Go To The Location Of Their Choice, 08/07/2020 19:57:23 08/08/1908/07/2020 CBC w/ auto diff MCH 27.0 pg (27.0- 34.0) Not Available [facility] (Centralized Electronic Ordering - All Locations) Patient Can Go To The Location Of Their Choice, 08/07/2020 19:57:23 08/08/1908/07/2020 CBC w/ auto diff MCHC 30.3 g/dL (33.0- 37.0) low Not Available [facility] (Centralized Electronic Ordering - All Locations) Patient Can Go To The Location Of Their Choice, 08/07/2020 19:57:23 08/08/1908/07/2020 CBC w/ auto diff plt 221 K/mm3 (150-4 60) Not Available [facility] (Centralized Electronic Ordering - All Locations) Patient Can Go To The Location Of Their Choice, 08/07/2020 19:57:23 08/08/1908/07/2020 CBC w/ auto diff RDW-SD 54.9 fL (<47.0 ) high Not Available [facility] (Centralized Electronic Ordering - All Locations) Patient Can Go To The Location Of Their Choice, 08/07/2020 19:57:23 08/08/1908/07/2020 CBC w/ auto diff MPV 10.9 fL (9.4-1 2.4) Not Available [facility] (Centralized Electronic Ordering - All Locations) Patient Can Go To The Location Of Their Choice, 08/07/2020 19:57:23 08/08/1908/07/2020 CBC w/ auto diff automated NRBC 0.0 #/100 _WBC' s Not Available [facility] (Centralized Electronic Ordering - All Locations) Patient Can Go To The Location Of Their Choice, 08/07/2020 19:57:23 08/08/1908/07/2020 CBC w/ auto diff abs. NRBC 0.0 K/mm3 Not Available [facility] (Centralized Electronic Ordering - All Locations) Patient Can Go To The Location Of Their Choice, 08/07/2020 19:57:23 08/08/1908/07/2020 BMP, serum or plasm a glucose 91 mg/dL (70-99 ) Not Available [facility] (Centralized Electronic Ordering - All Locations) Patient Can Go To The Location Of Their Choice, 08/07/2020 20:53:33 08/08/1908/07/2020 BMP, serum or plasm a BUN 20 mg/dL (8-23) Not Available [facility] (Centralized Electronic Ordering - All Locations) Patient Can Go To The Location Of Their Choice, 08/07/2020 20:53:33 08/08/1908/07/2020 BMP, serum or plasm a creatinine 1.2 mg/dL (0.5-1 .0) high Not Available [facility] (Centralized Electronic Ordering - All Locations) Patient Can Go To The Location Of Their Choice, 08/07/2020 20:53:33 08/08/1908/07/2020 BMP, serum or plasm a sodium 140 mmol/ L (133-1 45) Not Available [facility] (Centralized Electronic Ordering - All Locations) Patient Can Go To The Location Of Their Choice, 08/07/2020 20:53:33 08/08/1908/07/2020 BMP, serum or plasm a potassium 3.3 mmol/ L (3.6-5 .2) low Not Available [facility] (Centralized Electronic Ordering - All Locations) Patient Can Go To The Location Of Their Choice, 08/07/2020 20:53:33 08/08/1908/07/2020 BMP, serum or plasm a chloride 99 mmol/ L (98-10 7) Not Available [facility] (Centralized Electronic Ordering - All Locations) Patient Can Go To The Location Of Their Choice, 08/07/2020 20:53:33 08/08/1908/07/2020 BMP, serum or plasm a bicarbonate 28 mmol/ L (22-29 ) Not Available [facility] (Centralized Electronic Ordering - All Locations) Patient Can Go To The Location Of Their Choice, 08/07/2020 20:53:33 08/08/1908/07/2020 BMP, serum or plasm a anion gap 13 (4-17) Not Available [facility] (Centralized Electronic Ordering - All Locations) Patient Can Go To The Location Of Their Choice, 08/07/2020 20:53:33 08/08/1908/07/2020 BMP, serum or plasm a calcium 8.6 mg/dL (8.6-1 0.5) Not Available [facility] (Centralized Electronic Ordering - All Locations) Patient Can Go To The Location Of Their Choice, 08/07/2020 20:53:33 08/08/1908/07/2020 BMP, serum or plasm a est GFR non 45 mL/mi n/1.7 3_M2 Creat inine based estim ated glome rular filtr ation rate (eGFR ) is calcu lated using the Chron ic Kidne y Disea se Epide miolo gy Colla borat ion (CKD- EPI). The CKD-E PI creat inine equat ion has not been valid ated in child spencer (<18 years ), pregn ant women or in some racia l or ethni c subgr oups other than Cauca sians and Afric an Ameri cans. Not Available [facility] (Centralized Electronic Ordering - All Locations) Patient Can Go To The Location Of Their Choice, 08/07/2020 20:53:33 08/08/1908/07/2020 BMP, serum or plasm a est GFR 52 mL/mi n/1.7 3_M2 Creat inine based estim ated glome rular filtr ation rate (eGFR ) is calcu lated using the Chron ic Kidne y Disea se Epide miolo gy Colla borat ion (CKD- EPI). The CKD-E PI creat inine equat ion has not been valid ated in child spencer (<18 years ), pregn ant women or in some racia l or ethni c subgr oups other than Cauca sians and Afric an Ameri cans. Not Available [facility] (Centralized Electronic Ordering - All Locations) Patient Can Go To The Location Of Their Choice, 08/07/2020 20:53:33 08/08/1908/07/2020 hepat ic funct ion panel , serum bilirubin,to guadalupe 0.5 mg/dL (0-1.2 ) Not Available [facility] (Centralized Electronic Ordering - All Locations) Patient Can Go To The Location Of Their Choice, 08/07/2020 20:53:35 08/08/19 21 08/07/2020 hepat ic funct ion panel , serum bilirubin, direct <0.2 mg/dL (0-0.3 ) Not Available [facility] (Centralized Electronic Ordering - All Locations) Patient Can Go To The Location Of Their Choice, 08/07/2020 20:53:35 08/08/19 21 08/07/2020 hepat ic funct ion panel , serum indirect bilirubin mg/dL (0.0-0 .7) Direc t bilir ubin is less than the measu reabl e limit . There fore, indir ect bilir ubin canno t be calcu lated . Not Available [facility] (Centralized Electronic Ordering - All Locations) Patient Can Go To The Location Of Their Choice, 08/07/2020 20:53:35 08/08/19 21 08/07/2020 hepat ic funct ion panel , serum albumin 3.7 gm/dL (3.4-4 .8) Not Available [facility] (Centralized Electronic Ordering - All Locations) Patient Can Go To The Location Of Their Choice, 08/07/2020 20:53:35 08/08/19 21 08/07/2020 hepat ic funct ion panel , serum AST 29 U/L (0-32) Not Available [facility] (Centralized Electronic Ordering - All Locations) Patient Can Go To The Location Of Their Choice, 08/07/2020 20:53:35 08/08/19 21 08/07/2020 hepat ic funct ion panel , serum ALT 21 U/L (0-33) Not Available [facility] (Centralized Electronic Ordering - All Locations) Patient Can Go To The Location Of Their Choice, 08/07/2020 20:53:35 08/08/19 21 08/07/2020 hepat ic funct ion panel , serum alk phos 113 U/L (35-10 4) high Not Available [facility] (Centralized Electronic Ordering - All Locations) Patient Can Go To The Location Of Their Choice, 08/07/2020 20:53:35 08/08/19 21 08/07/2020 hepat ic funct ion panel , serum total protein 7.0 gm/dL (6.2-8 .2) Not Available [facility] (Centralized Electronic Ordering - All Locations) Patient Can Go To The Location Of Their Choice, 08/07/2020 20:53:35 08/08/1908/07/2020 nellie richard am done Not Available In-Office Order Internal Use Only DO Not Attach Compendium DO Not Attach Compendium, Do Not Delete/merge, [id number] 08/07/2020 13:04:53 04/14/2004/14/2022 BASIC METAB OLIC PANEL glucose 84 mg/dL (70-99 ) Not Available [facility] (Centralized Electronic Ordering - All Locations) Patient Can Go To The Location Of Their Choice, 04/14/2022 22:27:43 04/14/20 22 04/14/2022 BASIC METAB OLIC PANEL BUN 23 mg/dL (8-23) Not Available [facility] (Centralized Electronic Ordering - All Locations) Patient Can Go To The Location Of Their Choice, 04/14/2022 22:27:43 04/14/20 22 04/14/2022 BASIC METAB OLIC PANEL creatinine 1.1 mg/dL (0.5-1 .0) high Not Available [facility] (Centralized Electronic Ordering - All Locations) Patient Can Go To The Location Of Their Choice, 04/14/2022 22:27:43 04/14/2004/14/2022 BASIC METAB OLIC PANEL sodium 140 mmol/ L (133-1 45) Not Available [facility] (Centralized Electronic Ordering - All Locations) Patient Can Go To The Location Of Their Choice, 04/14/2022 22:27:43 04/14/2004/14/2022 BASIC METAB OLIC PANEL potassium 4.3 mmol/ L (3.6-5 .2) Not Available [facility] (Centralized Electronic Ordering - All Locations) Patient Can Go To The Location Of Their Choice, 04/14/2022 22:27:43 04/14/2004/14/2022 BASIC METAB OLIC PANEL chloride 100 mmol/ L (98-10 7) Not Available [facility] (Centralized Electronic Ordering - All Locations) Patient Can Go To The Location Of Their Choice, 04/14/2022 22:27:43 04/14/2004/14/2022 BASIC METAB OLIC PANEL bicarbonate 32 mmol/ L (22-29 ) high Not Available [facility] (Centralized Electronic Ordering - All Locations) Patient Can Go To The Location Of Their Choice, 04/14/2022 22:27:43 04/14/2004/14/2022 BASIC METAB OLIC PANEL anion gap 8 (4-17) Not Available [facility] (Centralized Electronic Ordering - All Locations) Patient Can Go To The Location Of Their Choice, 04/14/2022 22:27:43 04/14/2004/14/2022 BASIC METAB OLIC PANEL calcium 9.4 mg/dL (8.6-1 0.5) Not Available [facility] (Centralized Electronic Ordering - All Locations) Patient Can Go To The Location Of Their Choice, 04/14/2022 22:27:43 04/14/2004/14/2022 BASIC METAB OLIC PANEL estimated GFR creatinine 51 mL/mi n/1.7 3_M2 Creat inine based estim ated elderme january forte ation (eGFR ) in adult s is calcu lated using the Natio nal Kidne y Found ation recom amber d 2020 CKD-E PI equat ion. Estim ates GFR from serum creat inine , age and sex. Not Available [facility] (Centralized Electronic Ordering - All Locations) Patient Can Go To The Location Of Their Choice, 04/14/2022 22:27:43 03/28/2003/28/2023 BASIC METAB OLIC PANEL glucose 109 mg/dL (70-99 ) high Not Available [facility] (Centralized Electronic Ordering - All Locations) Patient Can Go To The Location Of Their Choice, 03/28/2023 22:04:47 03/28/2003/28/2023 BASIC METAB OLIC PANEL BUN 20 mg/dL (8-23) Not Available [facility] (Centralized Electronic Ordering - All Locations) Patient Can Go To The Location Of Their Choice, 03/28/2023 22:04:47 03/28/2003/28/2023 BASIC METAB OLIC PANEL creatinine 1.3 mg/dL (0.5-1 .0) high Not Available [facility] (Centralized Electronic Ordering - All Locations) Patient Can Go To The Location Of Their Choice, 03/28/2023 22:04:47 03/28/2003/28/2023 BASIC METAB OLIC PANEL sodium 139 mmol/ L (133-1 45) Not Available [facility] (Centralized Electronic Ordering - All Locations) Patient Can Go To The Location Of Their Choice, 03/28/2023 22:04:47 03/28/2003/28/2023 BASIC METAB OLIC PANEL potassium 4.2 mmol/ L (3.6-5 .2) Not Available [facility] (Centralized Electronic Ordering - All Locations) Patient Can Go To The Location Of Their Choice, 03/28/2023 22:04:47 03/28/2003/28/2023 BASIC METAB OLIC PANEL chloride 98 mmol/ L (98-10 7) Not Available [facility] (Centralized Electronic Ordering - All Locations) Patient Can Go To The Location Of Their Choice, 03/28/2023 22:04:47 03/28/2003/28/2023 BASIC METAB OLIC PANEL bicarbonate 27 mmol/ L (22-29 ) Not Available [facility] (Centralized Electronic Ordering - All Locations) Patient Can Go To The Location Of Their Choice, [id number] 03/28/2023 22:04:47 03/28/20 23 03/28/2023 BASIC METAB OLIC PANEL anion gap 14 (4-17) Not Available [facility] (Centralized Electronic Ordering - All Locations) Patient Can Go To The Location Of Their Choice, [id number] 03/28/2023 22:04:47 03/28/2003/28/2023 BASIC METAB OLIC PANEL calcium 9.3 mg/dL (8.6-1 0.5) Not Available [facility] (Centralized Electronic Ordering - All Locations) Patient Can Go To The Location Of Their Choice, [id number] 03/28/2023 22:04:47 03/28/2003/28/2023 BASIC METAB OLIC PANEL estimated GFR creatinine 45 mL/mi n/1.7 3_M2 Creat inine based estim ated glome rular filtr ation (eGFR ) in adult s is calcu lated using the Natio nal Kidne y Found ation recom amber d 2020 CKD-E PI equat ion. Estim ates GFR from serum creat inine , age and sex. Not Available [facility] (Centralized Electronic Ordering - All Locations) Patient Can Go To The Location Of Their Choice, [id number] 03/28/2023 22:04:47 08/01/19 20 07/18/2019 devic e check (PROC ) No observ ation record ed. [email or web address] z [facility] [address] [place], [address], 08/01/2019 14:40:00 11/01/19 20 10/16/2019 pacem marva check (PROC ) No observ ation record ed. [email or web address] [facility] [address] [place], [address], 11/02/2019 16:44:45 11/13/19 20 11/13/2019 CT, abdom en + pelvi s, w/ contr ast CT Abd/Pe lvis W/ IV + Oral Contra st Reason : upper abdomi nal pain; Clinic al Questi on(s): Other: . TECHNI QUE: Spiral CT throug h the abdome n and pelvis with IV contra st format viet in 3 planes . 100 cc Isovue -300 was admini stered intrav enousl y. The study was perfor med with oral contra st. Weight -based protoc ol using automa tic tube modula tion was used to optimi ze exposu re parame ters. CTDIvo l Body: 11.64 mGy, DLP Body: 505 mGy*cm . COMPAR BI: 07/07/19 18 from [facility] al FINDIN GS: Access Specialist View Findin gs, Lines and Tubes: None. Visual ized Chest: Lung bases have mild atelec tasis or scars. Pacema ker wire is again seen. Trace right pleura l effusi on, decrea sed since prior study. Cardio megaly is again noted. No perica rdial effusi on. Diaphr agm: Normal . Liver: Normal . Gallbl adder: No CT eviden ce of gallbl adder pathol ogy. Bile ducts: No biliar y ductal dilati on. Spleen : Normal . Pancre as: Normal . Adrena l Glands : Normal . Kidney s and Ureter s: Normal . No hydron ephros is, stones or suspic ious masses . Bladde r: Normal . Stomac h, Small bowel and Large Bowel: Small type I slidin g hiatal hernia is again seen. The stomac h is otherw ise under disten ded but unrema rkable . The small and large bowel loops are normal in calibe rs. No obstru ction. Append ix: Normal . Perito neum, omentu m and mesent angeli: No ascite s or pneumo perito neum. No omenta l or mesent maya lesion s. Lymph nodes: No enlarg ed lymph nodes. Blood Vessel s: Normal . No aneury sm. No eviden ce of venous thromb osis. Abdomi nal and pelvic wall: Unrema rkable . Reprod uctive organs : Unrema rkable . The left adnexa l mass seen on the prior study of 2018 is no longer presen t. Bones: No acute abnorm ality. The lumbar spine has a mild levosc oliosi s and mild diffus e spondy losis. IMPRES GOLD: No acute pathol ogy is seen in the abdome n and pelvis . Trace right pleura l effusi on. The left adnexa l mass seen on the prior study of 2018 is no longer presen t. WSN: [id number] Orderi ng Physic seun: Radha worley MD, Cabrera E Dictat ed By: Sarthak Bocanegra MD Dictat ed Date/T paulino: 10:56 p Review ed By: Sarthak Bocanegra MD Signed By: Sarthak Bocanegra MD Signed Date/T paulino: 10:56 pm Transc ribed By: LUIS Transc ribed Date/T paulino: 10:56 pm Patien t Class: Outpat ient [email or web address] [facility] (Outpt Imaging) [address] [place], [address], 11/21/2019 11:53:09 03/31/20 20 03/24/2020 inter nal cardi ac defib rilla tor (PROC ) No observ ation record ed. antonio palomares [facility] [address] [place], [address], 03/31/2020 18:20:16 08/08/19 21 elect rocar diogr am No observ ation record ed. antonio palomares In-Office Order Internal Use Only DO Not Attach Compendium DO Not Attach Compendium, Do Not Delete/merge, [id number] 08/07/2020 16:00:02 08/19/19 21 08/07/2020 elect rocar diogr am No observ ation record ed. BARCODE In-Office Order Internal Use Only DO Not Attach Compendium DO Not Attach Compendium, Do Not Delete/merge, [id number] 08/18/2020 12:13:06 08/26/19 21 08/25/2020 US, abdom en, compl ete US Abdome n Comp INDICA TION: Right upper quadra nt pain COMPAR BI: 012 FINDIN GS: Liver: Normal in size and echote xture. No focal lesion is seen. Main portal vein patent with normal hepato petal direct ion of flow. Gallbl adder: No gallst ones. Normal wall thickn ess. No perich olecys tic fluid. Negati ve Bui sign. Biliar y Tree: No intrah epatic or extrah epatic bile duct dilati on is identi fied. Common duct: 0.2 cm. Pancre as: No abnorm ality in the visual ized portio ns of the pancre as. Spleen : Normal in size and echote xture. Right kidney : Normal parenc hymal echote xture and thickn ess. No hydron ephros is, stone or mass. Left kidney : Normal parenc hymal echote xture and thickn ess. No hydron ephros is, stone or mass. Aorta: Normal calibe r and contou r. Inferi or vena cava: Normal . Other: No free fluid. IMPRES GOLD: Normal abdomi nal ultras ound. I have person ally review ed the images and I agree with this report . WSN: [id number] Orderi ng Physic seun: Radha worley MD, Cabrera Saul Dictat ed By: Volodymyr Quezada DO Dictat ed Date/T paulino: 3:16 pm Review ed By: Tre Person MD Signed By: Tre Person MD Signed Date/T paulino: 3:21 pm Transc ribed By: LUIS Transc ribed Date/T paulino: 1:52 pm Patien t Class: Outpat ient [facility] (Outpt Imaging) [address] [place] [address], [address], 09/11/2020 14:20:01 Result Notes Documentation Provider Name and Address Organization Details Recorded Time Ct, Abdomen + Pelvis, W/ Contrast : CT Abd/Pelvis W/ IV + Oral Contrast Reason: upper abdominal pain; Clinical Question(s): Other:. TECHNIQUE: Spiral CT through the abdomen and pelvis with IV contrast formatted in 3 planes. 100 cc Isovue-300 was administered intravenously. The study was performed with oral contrast. Weight-based protocol using automatic tube modulation was used to optimize exposure parameters. CTDIvol Body: 11.64 mGy, DLP Body: 505 mGy*cm. COMPARISON: 07/07/2017 from outside hospital FINDINGS: Access Specialist View Findings, Lines and Tubes: None. Visualized Chest: Lung bases have mild atelectasis or scars. Pacemaker wire is again seen. Trace right pleural effusion, decreased since prior study. Cardiomegaly is again noted. No pericardial effusion. Diaphragm: Normal. Liver: Normal. Gallbladder: No CT evidence of gallbladder pathology. Bile ducts: No biliary ductal dilation. Spleen: Normal. Pancreas: Normal. Adrenal Glands: Normal. Kidneys and Ureters: Normal. No hydronephrosis, stones or suspicious masses. Bladder: Normal. Stomach, Small bowel and Large Bowel: Small type I sliding hiatal hernia is again seen. The stomach is otherwise under distended but unremarkable. The small and large bowel loops are normal in calibers. No obstruction. Appendix: Normal. Peritoneum, omentum and mesentery: No ascites or pneumoperitoneum. No omental or mesenteric lesions. Lymph nodes: No enlarged lymph nodes. Blood Vessels: Normal. No aneurysm. No evidence of venous thrombosis. Abdominal and pelvic wall: Unremarkable. Reproductive organs: Unremarkable. The left adnexal mass seen on the prior study of 2017 is no longer present. Bones: No acute abnormality. The lumbar spine has a mild levoscoliosis and mild diffuse spondylosis. IMPRESSION: No acute pathology is seen in the abdomen and pelvis. Trace right pleural effusion. The left adnexal mass seen on the prior study of 2017 is no longer present. WSN: [id number] Ordering Physician: Cabrera Germain MD Dictated By: Sarthak Bocanegra MD Dictated Date/Time: 11/13/19 10:56 p Reviewed By: Sarthak Bocanegra MD Signed By: Sarthak Bocanegra MD Signed Date/Time: 11/13/19 10:56 pm Transcribed By: LUIS Transcribed Date/Time: 11/13/19 10:56 pm Patient Class: Outpatient CK Hung [facility] [place] 11/21/2019 11:53:09 Problems Name Problem SNOMED Code Status Onset Date Resolution Date Notes Provider Name and Address Organization Details Recorded Time Acute myocardi al infarcti on 21022478 Completed 04/02/2016 Cabrera hernandez [facility] [place] 6 11:13:46 Essentia l hyperten gold 71026464 Active Cabrera hernandez [facility] 6 14:39:52 Malaise and fatigue 125960976 Completed 04/02/2016 CK Hung, [facility] 6 10:44:50 Tobacco user 352154238 Completed 09/09/2016 Cabrera hernandez [facility] 7 10:53:23 History of clinical finding in subject [id number] Completed 04/02/2016 CK Hung, [facility] 6 10:44:27 Adult health examinat ion Completed 04/02/2016 CK Hung, [facility] 6 10:44:17 Hyperlip idemia 42359635 Active Cbarera hernandez [facility] 6 14:39:52 Hypothyr oidism 48536338 Active Mane Gao [place] [address] [address] [place] [address], [facility] [place], [address] , [facility] 4 13:41:22 Migraine 37893216 Active Mane [address] [address] [address] [place] [address], [facility] [place], [address] , [facility] 4 13:41:22 Obesity 913570864 Emma Gao [place] [address] [address] [place] [address], [facility] [place], [address] , [facility] 4 13:41:22 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 on 0661261 Active Cabrera hernandez [facility] 6 14:39:52 Multiple sclerosi s 92817195 Active Cabrera hernandez [facility] 6 20:53:29 Fracture d nasal bones 395355372 Completed 09/09/2016 Cabrera hernandez [facility] 7 10:53:39 Allergy Completed 04/02/2016 CK Hung [facility] 6 10:44:58 Cough 33246142 Completed 04/02/2016 CK Hung [facility] 6 10:44:32 Atrophic vaginiti s 83300352 Active Cabrera hernandez [facility] 6 20:53:29 Edema 936940370 Completed 04/02/2016 CK Hung [facility] 6 10:44:43 Asthma 187746795 Active Cabrera MichelleGlo hernandez [facility] 6 20:53:29 Pain of breast 76428337 Completed 04/02/2016 CK Hung, [facility] 6 10:44:36 Disorder of breast 22587628 Completed 04/02/2016 Cabrerakg MartinezGlo hernandez [facility] 6 11:13:50 Lymphede ck 721406595 Completed 09/09/2016 Cabrera MichelleGlo hernandez [facility] 7 10:53:34 Influenz a vaccine needed 29582933784 06 Completed 201112/11/2013 RECORDED 07/28/19 12 2:56PM BY CK MCDANIEL, OFFICE VISIT Not Available [facility] 4 15:11:10 Influenz a vaccine needed 71172856146 06 Completed 201101/07/2014 RECORDED 07/28/19 12 2:56PM BY CK MCDANIEL, OFFICE VISIT Not Available [facility] 4 05:12:36 Abdomina l pain 99532394 Completed 201112/11/2013 RECORDED 03/01/20 12 10:17AM BY CHARLEEN FAYE MA, ANNOTATI ON/ADDEN DUM Not Available [facility] 4 15:11:08 Cardiome michelle 9197850 Completed 201112/11/2013 IMPRESSI ON: ON ECHO 2009 EF 50%; RECORDED 03/01/20 12 10:17AM BY CHARLEEN FAYE MA, ANNOTATI ON/ADDEN DUM Not Available [facility] 4 15:11:09 Cough 24913698 Completed 201112/11/2013 IMPRESSI ON: SEE ABOVE PLAN, NOT RESOLVIN G WITH INHALER, ALLERGY TX, WILLR EFER TO PULMONAR Y; RECORDED 03/01/20 12 10:17AM BY CHARLEEN FAYE MA, ANNOTATI ON/ADDEN DUM [facility] 6 10:44:32 Alopecia [id number] Completed 201112/11/2013 IMPRESSI ON: NOTE GIOVANI HAIR IS THINNING , CHECK THYROID LABS AND REFER TO ENDO; RECORDED 03/01/20 12 10:17AM BY CHARLEEN FAYE MA, ANNOTATI ON/ADDEN DUM Not Available [facility] 4 15:11:09 Hypocalc emia [id number] Completed 201112/11/2013 IMPRESSI ON: CALCIUM CHECKED IS A LITTLE LOW AT 8.4, PT IS ON DIURETIC , WILL RECHECK LEVEL INCLUDIN G ALBUMIN, GO FROM THERE.; RECORDED 03/01/20 12 10:17AM BY CHARLEEN FAYE MA, ANNOTATI ON/ADDEN DUM Not Available [facility] 4 15:11:10 Disorder of magnesiu m metaboli sm [id number] Completed 201112/11/2013 IMPRESSI ON: CHECK LEVEL; RECORDED 03/01/20 12 10:17AM BY CHARLEEN FAYE MA, ANNOTATI ON/ADDEN DUM Not Available [facility] 4 15:11:10 Automati c implanta ble cardiac defibril lator in situ [id number] Completed 201112/11/2013 IMPRESSI ON: SINGLE CHAMBER ONE IN PLACE; RECORDED 03/01/20 12 10:17AM BY CHARLEEN FAYE MA, ANNOTATI ON/ADDEN DUM Sindhu Rae david [facility] 9 23:17:46 Amnesia [id number] Completed 201112/11/2013 IMPRESSI ON: PT STATES SINCE HER CARDIAC ARREST; RECORDED 03/01/20 12 10:17AM BY CHARLEEN FAYE MA, ANNOTATI ON/ADDEN DUM Not Available [facility] 4 15:11:10 Menopaus al symptom [id number] Completed 201112/11/2013 IMPRESSI ON: WOULD LIEK TO STAY ON MEDS, I EXPLAINE D THERE IS AN INCREASE D RISK OF BREAST CANCER ON ESTROGEN ; RECORDED 03/01/20 12 10:17AM BY CHARLEEN FAYE MA, ANNOTATI ON/ADDEN DUM Not Available [facility] 4 15:11:10 Menopaus e symptoms present Completed 201112/11/2013 RECORDED 03/01/20 12 10:17AM BY CHARLEEN FAYE MA, ANNOTATI ON/ADDEN DUM Not Available [facility] 4 15:11:10 Mitral valve disorder [id number] Completed 201112/11/2013 IMPRESSI ON: SEES CARDIOLO GY, IT IS SEVERE, THEY DID A RECENT ECHO; RECORDED 03/01/20 12 10:17AM BY CHARLEEN FAYE MA, ANNOTATI ON/ADDEN DUM Not Available [facility] 4 15:11:10 Posterio r rhinorrh ea [id number] Completed 201112/11/2013 IMPRESSI ON: CAUSING A COUGH THAT IS SLOWLY IMPORVIN G, PT HAS REFUSED NASAL STEROIDS , DID NOT TOLERATE SINGULAI R, I STRONGLY URGED HER TO TAEK 5MG CLARITIN , IF IT WORSENS SHE SHOULD MAKE AN APPT WITH PULMONAR Y, WE DID THAT IN THE PAST AND SHE THEN DECIDED TO WAIT SICNE IT WAS IMPROVIN G; RECORDED 03/01/20 12 10:17AM BY CHARLEEN FAYE MA, ANNOTATI ON/ADDEN DUM Not Available [facility] 4 15:11:11 Abdomina l pain [id number] Completed 201101/07/2014 RECORDED 03/01/20 12 10:17AM BY CHARLEEN FAYE MA, ANNOTATI ON/ADDEN DUM Not Available [facility] 4 05:12:35 Cardiome michelle [id number] Completed 201101/07/2014 IMPRESSI ON: ON ECHO 2009 EF 50%; RECORDED 03/01/20 12 10:17AM BY CHARLEEN FAYE MA, ANNOTATI ON/ADDEN DUM Not Available [facility] 4 05:12:35 Cough [id number] Completed 201101/07/2014 IMPRESSI ON: FINISHED 7 DAYS, IS BETTER BUT STILL COUGHING ZULEYKA EXTEND FOR 3 MORE DAYS; RECORDED 03/01/20 12 10:17AM BY CHARLEEN FAYE MA, ANNOTATI ON/ADDEN DUM CK Hung [place] - [facility] 6 10:44:32 Alopecia [id number] Completed 201101/07/2014 IMPRESSI ON: NOTE GIOVANI HAIR IS THINNING , CHECK THYROID LABS AND REFER TO ENDO; RECORDED 03/01/20 12 10:17AM BY CHARLEEN FAYE MA, ANNOTATI ON/ADDEN DUM Not Available [facility] 4 05:12:36 Hypocalc emia [id number] Completed 201101/07/2014 IMPRESSI ON: CALCIUM CHECKED IS A LITTLE LOW AT 8.4, PT IS ON DIURETIC , WILL RECHECK LEVEL INCLUDIN G ALBUMIN, GO FROM THERE.; RECORDED 03/01/20 12 10:17AM BY CHARLEEN FAYE MA, REDDY ON/ADDEN DUM Not Available [facility] 4 05:12:36 Disorder of magnesiu m metaboli sm [id number] Completed 201101/07/2014 IMPRESSI ON: CHECK LEVEL; RECORDED 03/01/20 12 10:17AM BY CHARLEEN FAYE MA, ANNOTATI ON/ADDEN DUM Not Available [facility] 4 05:12:36 Automati c implanta ble cardiac defibril lator in situ [id number] Completed 201101/07/2014 IMPRESSI ON: SINGLE CHAMBER ONE IN PLACE; RECORDED 03/01/20 12 10:17AM BY CHARLEEN FAYE MA, ANNOTATI ON/ADDEN DUM Sindhu Rae us null, [facility] 9 23:17:46 Amnesia [id number] Completed 201101/07/2014 IMPRESSI ON: PT STATES SINCE HER CARDIAC ARREST; RECORDED 03/01/20 12 10:17AM BY CHARLEEN FAYE MA, ANNOTATI ON/ADDEN DUM Not Available [facility] 4 05:12:36 Menopaus al symptom [id number] Completed 201101/07/2014 IMPRESSI ON: WOULD LIEK TO STAY ON MEDS, I EXPLAINE D THERE IS AN INCREASE D RISK OF BREAST CANCER ON ESTROGEN ; RECORDED 03/01/20 12 10:17AM BY CHARLEEN FAYE MA, ANNOTATI ON/ADDEN DUM Not Available [facility] 4 05:12:36 Menopaus e symptoms present Completed 201101/07/2014 RECORDED 03/01/20 12 10:17AM BY CHARLEEN FAYE MA, ANNOTATI ON/ADDEN DUM Not Available [facility] 4 05:12:36 Mitral valve disorder [id number] Completed 201101/07/2014 IMPRESSI ON: SEES CARDIOLO GY, IT IS SEVERE, THEY DID A RECENT ECHO; RECORDED 03/01/20 12 10:17AM BY CHARLEEN FAYE MA, ANNOTATI ON/ADDEN DUM Not Available [facility] 4 05:12:36 Posterio r rhinorrh ea [id number] Completed 201101/07/2014 IMPRESSI ON: CAUSING A COUGH THAT IS SLOWLY IMPORVIN G, PT HAS REFUSED NASAL STEROIDS , DID NOT TOLERATE SINGULAI R, I STRONGLY URGED HER TO TAEK 5MG CLARITIN , IF IT WORSENS SHE SHOULD MAKE AN APPT WITH PULMONAR Y, WE DID THAT IN THE PAST AND SHE THEN DECIDED TO WAIT SICNE IT WAS IMPROVIN G; RECORDED 03/01/20 12 10:17AM BY CHARLEEN FAYE MA, ANNOTATI ON/ADDEN DUM Not Available [facility] 4 05:12:36 Mammogra phy abnormal [id number] Completed 201212/11/2013 IMPRESSI ON: LONG TALK, CONVINCE D PT TO GET US, SHE REFUSED MAMMOGRA M REPEAT VIEWS,; RECORDED 09/12/19 13 9:43AM BY KEV WHARTON MA, ANNOTATI ON/ADDEN DUM Not Available [facility] 4 15:11:08 Screenin g for malignan t neoplasm of breast Completed 201212/11/2013 IMPRESSI ON: LONG TALK WITH PT, NO MATTER WHAT SHE REFUSES REPEAT COMPRESS ION MAMMOGRA M RECC AND REFUSES AL OTHER MAMMOGRA MS DUE TO PAIN, KNOWS THERE MAY BE A BREAST CANCER THAT COULD BE MISSED.; RECORDED 09/12/19 13 9:43AM BY KEV WHARTON MA, ANNOTATI ON/ADDEN DUM Not Available [facility] 4 15:11:09 Adult health examinat ion Completed 201212/11/2013 IMPRESSI ON: BIMANUAL EXAM TODAY, RECTAL, PT REFUSES MAMMOGRA M. WILL ADD VITAMIN D AND START OT EXERCISE ; RECORDED 09/12/19 13 9:43AM BY KEV WHARTON MA, ANNOTATI ON/ADDEN DUM CK Hung MA [facility] 6 10:44:17 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 on [id number] Completed 201212/11/2013 IMPRESSI ON: NO CP OR SOB, FOLLOWED BY CARDIOLO GY; RECORDED 09/12/19 13 9:43AM BY KEV WHARTON MA, ANNOTATI ON/ADDEN DUM Not Available [facility] 4 15:11:10 Immuniza tion refused Completed 201212/11/2013 RECORDED 09/12/19 13 9:43AM BY KEV WHARTON MA, ANNOTATI ON/ADDEN DUM Not Available [facility] 4 15:11:11 Mammogra phy abnormal [id number] Completed 201201/07/2014 IMPRESSI ON: LONG TALK, CONVINCE D PT TO GET US, SHE REFUSED MAMMOGRA M REPEAT VIEWS,; RECORDED 09/12/19 13 9:43AM BY KEV WHARTON MA, ANNOTATI ON/ADDEN DUM Not Available [facility] 4 05:12:35 Screenin g for malignan t neoplasm of breast Completed 201201/07/2014 IMPRESSI ON: LONG TALK WITH PT, NO MATTER WHAT SHE REFUSES REPEAT COMPRESS ION MAMMOGRA M RECC AND REFUSES AL OTHER MAMMOGRA MS DUE TO PAIN, KNOWS THERE MAY BE A BREAST CANCER THAT COULD BE MISSED.; RECORDED 09/12/19 13 9:43AM BY KEV WHARTON MA, ANNOTATI ON/ADDEN DUM Not Available [facility] 4 05:12:35 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 on [id number] Completed 201201/07/2014 IMPRESSI ON: NO CP OR SOB, FOLLOWED BY CARDIOLO GY; RECORDED 09/12/19 13 9:43AM BY KEV WHARTON MA, ANNOTATI ON/ADDEN DUM Not Available [facility] 4 05:12:36 Immuniza tion refused Completed 201201/07/2014 RECORDED 09/12/19 13 9:43AM BY KEV WHARTON MA, ANNOTATI ON/ADDEN DUM Not Available [facility] 4 05:12:36 Pneumoni a [id number] Completed 201212/11/2013 IMPRESSI ON: WILL TX WITH CEPHALOS PORIN D/T MULTILPE ANTIBIOT IC ALLERGIE S INCL. PCN, EMYCIN, LEVAQUIN , SULFA,; RECORDED 10/13/19 13 8:52AM BY JAMESON VELAZCO MA, ANNOTATI ON/ADDEN DUM Not Available [facility] 4 15:11:09 Tobacco user [id number] Completed 201212/11/2013 RECORDED 10/13/19 13 8:52AM BY JAMESON VELAZCO MA, ANNOTATI ON/ADDEN DUM Cabrera hernandez [place] - [facility] 7 10:53:23 Pneumoni a [id number] Completed 201201/07/2014 IMPRESSI ON: WILL TX WITH CEPHALOS PORIN D/T MULTILPE ANTIBIOT IC ALLERGIE S INCL. PCN, EMYCIN, LEVAQUIN , SULFA,; RECORDED 10/13/19 13 8:52AM BY JAMESON VELAZCO MA, ANNOTATI ON/ADDEN DUM Not Available [facility] 4 05:12:36 Diarrhea [id number] Completed 201312/11/2013 IMPRESSI ON: WILL TREAT EMPIRICA LLY FOR C DIF, HAD ABX EXPOSURE AND THEN IT STARTED, CALL IF ANY WORSENIN G, DETAILS OF C DIF EXPLAINE D TO PT, GOOD HAND WASHING, LIMIT EXPOSURE ANDD CONTACT AND FOOT PREPARAT ION; RECORDED 07/31/19 14 2:26PM BY REDDY HUNG ON/ADDEN DUM Not Available [facility] 4 15:11:09 Diarrhea [id number] Completed 201301/07/2014 IMPRESSI ON: WILL TREAT EMPIRICA LLY FOR C DIF, HAD ABX EXPOSURE AND THEN IT STARTED, CALL IF ANY WORSENIN G, DETAILS OF C DIF EXPLAINE D TO PT, GOOD HAND WASHING, LIMIT EXPOSURE ANDD CONTACT AND FOOT PREPARAT ION; RECORDED 07/31/19 14 2:26PM BY REDDY HUNG ON/ADD Not Available [facility] 4 05:12:36 Advance directiv e discusse d with patient 980074362 Active 2015 Cabrera hernandez [facility] 6 11:13:35 Atrial fibrilla tion 43142090 Active 2017 Cabrera hernandez [facility] 8 22:37:05 Cardiac pacemake r in situ 789901938 Completed 201808/28/2018 Cabrera hernandez [facility] 9 14:51:56 Automati c implanta ble cardiac defibril lator in situ 904710266 Active 2018 [place]: SINGLE CHAMBER ONE IN PLACE; RECORDED 03/01/20 12 10:17AM BY CHARLEEN FAYE MA, REDDY ON/ADDEN DUM/12/19 Had firing of device, battery changed 12/21/18 Sindhu Rae null, [facility] 9 23:17:46 Mitral valve regurgit ation 58293387 Active 2018 followed by cardiojeromy Rae null, [facility] 9 23:21:00 Chronic kidney disease stage 3 715190270 Active 2020 Gary Tony MD null, [facility] 1 15:49:41 Problem Notes None recorded. Procedures Surgical History Date Name Laterality Status Provider Name and Address Organization Details Recorded Time 12/20/19 19 cardioverter defibrillator procedure completed Deb Barajas [facility] 12/22/2018 09:56:29 08/29/19 19 Mini-Cog Test completed Syeda Dow MA [facility] 08/28/2018 14:26:58 04/02/20 16 Fall Risk Assessment completed Syeda Dow MA [facility] 04/02/2016 10:52:17 04/02/20 16 Mini-Cog Test completed Syeda Dow MA [facility] 04/02/2016 10:50:22 04/02/20 16 Advanced Care Planning completed Bere Candelaria [facility] 04/05/2016 08:48:14 03/13/20 15 Fall Risk Assessment completed Syeda Dow MA [facility] 03/13/2015 14:36:28 03/13/20 15 Mini-Cog Test completed Syeda Dow MA [facility] 03/13/2015 14:37:49 10/05/19 12 Most Recent Mammogram completed Syeda Dow MA [facility] 08/28/2018 14:23:48 Imaging Results None recorded. Procedure Notes None recorded. Medical Equipment None Reported. Allergies Allergen ID Allergen Name Allergen Category Reaction Reaction Severity Criticality Documentation Date Start Date Code Code System Note Provider Name and Address Organization Details Recorded Time Substance with sulfonami de structure and antibacte rial mechanism of action (substanc e) medicatio n vomiting Not available Not available 08/15/20142013 06847 8003 SNOMED Yolette hernandez [facility] 5 13:50:22 64121 Lyrica medicatio n Not available Not available Not available 10/04/2017 91511 1 RxNorm hair loss [facility], [facility] 8 15:33:22 3887 benzonata te medicatio n Not available Not available Not available 12/11/20132013 46662 RxNorm Rosibel France MA david, [facility] 8 11:19:56 3888 codeine medicatio n vomiting Not available Not available 12/11/20132013 2670 RxNorm Rosibelromina France MA david, [facility] 8 11:19:58 3889 Depakote medicatio n hallucina tions Not available Not available 12/11/20132013 60060 9 RxNorm Rosibelromina France MA david, [facility] 8 11:20:00 3890 erythromy kirby medicatio n Not available Not available Not available 12/11/20132013 4053 RxNorm VISHNU Fraire [address] [address], [place], [address] [place] [address] 7 11:40:50 3891 furosemid e Not available Not available Not available Not available 12/11/20132013 4603 RxNorm Rosibelromina France MA david, [facility] 8 11:20:05 3892 gabapenti n medicatio n hallucina tions Not available Not available 12/11/20132013 98150 RxNorm Rosibelromina France MA david, [facility] 8 11:20:08 3893 Levaquin medicatio n nausea Not available Not available 12/11/20132013 90850 2 RxNorm Rosibelromina Avendañosriram CK david, [facility] 8 11:20:09 3894 Product containin g penicilli n (product) medicatio n hives Not available Not available 12/11/20132013 25704 8001 [facility] 8 11:20:11 3895 prednison e medicatio n Not available Not available Not available 12/11/20132013 8640 RxNorm Rosibel hernandez [facility] 8 11:20:13 3896 triamtere ne Not available Not available Not available Not available 12/11/20132013 15803 [facility] 8 11:20:16 3897 Zestril medicatio n myalgias (muscle pain) Not available Not available 12/11/20132013 35009 2 [facility] 8 11:20:20 Medications Name Sig Start Date Stop Date Status Note LastModified by Organization Details LastModified Time Prescript ion - Clarifica tion 04/02 completed Not Available Not Available Not Available potassium chloride ER 10 mEq capsule,e xtended release BID 09/12 completed RECORDED 09/13/19 12 2:21PM BY REDDY TRACY ON/LISA WIGGINS; Not Available Not Available Not Available Dilaudid 2 mg tablet Take 1 tablet twice a day by oral route as needed for 7 days. 09/13 completed Not Available Not Available Not Available cefuroxim e axetil 250 mg tablet TWO TIMES DAILY 09/13 completed Not Available Not Available Not Available atorvasta tin 20 mg tablet Take 1 tablet by mouth once daily 2020 active Not Available Not Available Not Avai lable bumetanid e 2 mg tablet 04/02 completed Not Available Not Available Not Available clindamyc in HCl 300 mg capsule TAKE 2 CAPSULES BY MOUTH 1 HOUR BEFORE PROCEDUR E 06/18 completed Not Available Not Available Not Available Pacerone 200 mg tablet TAKE 1 TABLET BY MOUTH ONCE DAILY active Not Available Not Available No t Available Coricidin HBP Cough and Cold 4 mg-30 mg tablet Take 1 tablet every 6 hours by oral route as directed for 5 days. 12/15 completed Not Available Not Available Not Available valacyclo vir 1 gram tablet Take 1 tablet every 8 hours by oral route for 7 days. 09/13 completed Not Available Not Available Not Available Pacerone 400 mg tablet Take 1 tablet every day by oral route for 30 days. 09/13 completed Not Available Not Available Not Available ondansetr on HCl 4 mg tablet Take 1 tablet 3 times a day by oral route as needed for 5 days. 09/28 completed Not Available Not Available Not Available valsartan 160 mg-hydroc hlorothia zide 12.5 mg tablet QD active RECORDED 07/28/19 12 3:11PM BY CABRERA Epstein MD, ANNOTATI ON/LISA DUM; Not Available Not Available Not Available clindamyc in HCl 150 mg capsule Take 1 capsule every 6 hours by oral route for 8 days. 03/05 completed Not Available Not Available Not Available potassium chloride ER 10 mEq tablet,ex tended release TAKE 1 TABLET BY MOUTH ONCE DAILY FOR 30 DAYS 06/20 completed was burning her stomach Not Available Not Available Not Available metronida zole 500 mg tablet TID 10/22 completed RECORDED 02/01/20 13 11:10AM BY CABRERA Epstein MD, MEDICATI ON AUTO-JENNIE CTIVATIO N; Not Available Not Available Not Available ciproflox acin 500 mg tablet BID 07/30 completed RECORDED 08/01/19 12 8:43PM BY CABRERA Epstein MD, MEDICATI ON AUTO-JENNIE CTIVATIO N; Not Available Not Available Not Available levothyro xine 25 mcg tablet TAKE 1 TABLET BY MOUTH ONCE DAILY active Not Available Not Available No t Available potassium chloride 20 mEq/15 mL oral liquid 08/28 completed Not Available Not Available Not Available levothyro xine 75 mcg tablet Take 1 tablet every day by oral route for 30 days. 07/27 completed Not Available Not Available Not Available alprazola m 0.5 mg tablet TAKE 1 TABLET BY MOUTH TWICE DAILY active Not Available Not Available No t Available magnesium oxide 400 mg (241.3 mg magnesium ) tablet BID active RECORDED 07/31/19 14 2:26PM BY SYEDA DOW, OFFICE VISIT; Not Available Not Available Not Available estradiol 1 mg tablet Take 1 tablet by mouth once daily active Not Available Not Available No t Available dicyclomi ne 20 mg tablet 1 po q hs 09/28 completed Not Available Not Available Not Available dexametha sone 1 mg tablet Patient to taper dose as follows: 3 tabs for 2 days, 2 tabs for 2 days, 1 tab for 2 days, 1 tab QOD 10/04 completed Not Available Not Available Not Available dexametha sone 2 mg tablet 08/25 completed Not Available Not Available Not Available levothyro xine 50 mcg tablet Take 1 tablet every day by oral route for 90 days. active Not Available Not Available No t Available pantopraz ole 40 mg tablet,de layed release Take 1 tablet every day by oral route for 90 days. active Not Available Not Available No t Available diphenhyd ramine 25 mg capsule QD active RECORDED 07/31/19 14 2:26PM BY SYEDA DOW, OFFICE VISIT; Not Available Not Available Not Available bumetanid e 0.5 mg tablet 2 po bid active Not Available Not Available Not Available omeprazol e 20 mg capsule,d elayed release Take 1 capsule by mouth twice daily active Not Available Not Available No t Available bumetanid e 1 mg tablet TAKE 1 TABLET BY MOUTH THREE TIMES DAILY DIRECTED 2020 active Not Available Not Available Not Avai lable monteluka st 10 mg tablet DAILY 07/30 completed RECORDED 07/31/19 14 2:31PM BY SYEDA DOW, OFFICE VISIT; Not Available Not Available Not Available furosemid e 20 mg tablet active Not Available Not Available Not Available estradiol 0.5 mg tablet TAKE ONE TABLET BY MOUTH ONCE DAILY 02/06 completed Not Available Not Available Not Available irbesarta n 150 mg tablet Take 1 tablet by mouth once daily 2020 active Not Available Not Available Not Avai lable cefuroxim e axetil 500 mg tablet Take 1 tablet every 12 hours by oral route as directed for 5 days. 12/15 completed Not Available Not Available Not Available ondansetr on 4 mg disintegr ating tablet 1 po prn 09/13 completed Not Available Not Available Not Available doxycycli ne hyclate 100 mg tablet Take 1 tablet twice a day by oral route for 10 days. 06/19 completed Not Available Not Available Not Available atenolol 50 mg tablet TAKE 1 TABLET BY MOUTH TWICE DAILY active Not Available Not Available No t Available ipratropi um bromide 21 mcg (0.03 %) nasal spray USE TWO DOSES IN EACH NOSTRIL 4 TIMES DAILY active Not Available Not Available No t Available potassium gluconate 2 mEq tablet QD active RECORDED 07/28/19 12 3:09PM BY CABRERA Epstein MD, ANNOTATI ON/ADDEN DUM; Not Available Not Available Not Available naproxen 500 mg tablet Take 1 tablet twice a day by oral route as directed for 30 days. 08/03 completed Not Available Not Available Not Available Tylenol Extra Strength 500 mg tablet Take 2 tablets every 8 hours by oral route as needed. 2018 active Not Available Not Available Not Avai lable Ventolin HFA 90 mcg/actua tion aerosol inhaler INHALE 2 PUFFS BY MOUTH EVERY 4 HOURS NEEDED active Not Available Not Available No t Available valsartan 160 mg tablet Take 1 tablet every day by oral route as directed . 06/19 completed Not Available Not Available Not Available albuterol (refill) 90 mcg/actua tion aerosol inhaler EVERY 4 HOURS PRN WHEEZING 10/11 completed RECORDED 10/13/19 13 8:52AM BY ROSINA POTTS PA-C, MEDICATI ON AUTO-JENNIE CTIVATIO N; Not Available Not Available Not Available cyclobenz aprine 5 mg tablet 08/03 completed Not Available Not Available Not Available cyclospor ine 0.05 % eye drops in a dropperet te BOTH EYES 07/28 completed RECORDED 07/29/19 13 2:25PM BY SYEDA DOW, OFFICE VISIT; Not Available Not Available Not Available Premarin 0.625 mg/gram vaginal cream Insert 0.5 g every 72 hours by vaginal route. 04/02 completed Not Available Not Available Not Available rosuvasta tin 10 mg tablet QD 12/07 completed RECORDED 12/08/19 12 10:43AM BY SYEDA DOW, OFFICE VISIT; Not Available Not Available Not Available Klor-Con M20 mEq tablet,ex tended release Take 1 tablet twice a day by oral route as directed for 90 days. 08/28 completed Not Available Not Available Not Available Readi-Cat 2 2.1 % (w/v), 2.0 % (w/w) oral suspensio n Take 450 mL twice a day by oral route as directed for 1 day. 12/05 completed Not Available Not Available Not Available Lyrica 50 mg capsule Take 1 capsule 3 times a day by oral route for 30 days. 10/04 completed Not Available Not Available Not Available Aspirin EC 81 po qd 02/06 completed Not Available Not Available Not Available magnesium oxide 200 mg, 2 tablets , twice a day 2018 active Not Available Not Available Not Avai lable amiodaron e 200 mg , 1 tab daily after dinner 12/22 completed duplicat e in chart Not Available Not Available Not Available doxycycli ne hyclate 100mg , 1 tab every 12 hours 06/19 completed Not Available Not Available Not Available Vitamin D3 2,000 units cap , 1 cap daily 2018 active Not Available Not Available Not Avai lable Potassium Chloride ER active RECORDED 09/13/19 12 2:21PM BY TANESHA TRACYATI ON/LISA DUM; Not Available Not Available Not Available azelastin e 205.5 mcg (0.15 %) nasal spray USE TWO SPRAY(S) TWICE DAILY [facility] ALL FOR 30 DAYS active Not Available Not Available No t Available Vagifem 10 mcg vaginal tablet Insert 1 tablet every 72 hours by vaginal route for 30 days. 04/02 completed Not Available Not Available Not Available Xarelto 20 mg tablet TAKE 1 TABLET BY MOUTH WITH EVENING MEAL active Not Available Not Available No t Available potassium chloride ER 20 mEq tablet,ex tended release Take 1 tablet every day by oral route for 30 days. active Not Available Not Available No t Available Readi-Cat 2 2 % (w/v) oral suspensio n TAKE 450ML (1 BOTTLE) TWICE A DAY DIRECTED . DO NOT EAT 3 HRS PRIOR TO APPT. DO NOT TAKE METFORMI N. DRINK 1 BOTTLE 6 HOURS PRIOR TO APPT D 08/07 completed Not Available Not Available Not Available Vitals Date Recorded Body height Provider Name an d Address Organization Details Last Updated DateTime 06/18/2020 154.94 cm Nely Ortiz MA [facility] 06/18/2020 13:04:33 Date Recorded Body height Body mass index (BMI) Body weight Oxygen saturation Heart rate Body temperature Systolic And Diastolic Provider Name and Address Organization Details Last Updated DateTime 1 154.94 cm 29.9 kg/m2 71741.2 9 g 97 % 50 /min 98.06 [degF] 126/76 mm[Hg] Syeda Dow MA [facility] 1 12:55:07 Date Recorded Body height Provider Name an d Address Organization Details Last Updated DateTime 08/16/2019 154.94 cm Syeda Dow MA [facility] 08/16/2019 10:41:13 Date Recorded Body height Body temperature Oxygen saturation Heart rate Body mass index (BMI) Body weight Systolic And Diastolic Provider Name and Address Organization Details Last Updated DateTime 0 154.94 cm 96.98 [degF] 96 % 49 /min 28.8 kg/m2 31814.1 4 g 127/72 mm[Hg] Syeda Dow MA [facility] 0 14:09:59 Date Recorded Body height Body mass index (BMI) Body weight Oxygen saturation Heart rate Body temperature Systolic And Diastolic Provider Name and Address Organization Details Last Updated DateTime 0 154.94 cm 28.2 kg/m2 47241.6 6 g 96 % 57 /min 97.16 [degF] 123/70 mm[Hg] Syeda Dow MA [facility] 0 14:36:29 Social History Question Answer Notes LastModified by Organizat ion Details LastModified Time Tobacco Smoking Status Former Smoker CK Jenkins [facility] 01/17/2014 11:04:52 Is Blood Transfusion Acceptable In An Emergency? Yes [email or web address] Information not available 03/13/2015 What Is Your Level Of Caffeine Consumption? Occasional [email or web address] Information not available 03/13/2015 What Type Of Diet Are You Following? REGULAR [email or web address] Information not available 03/13/2015 Live Alone Or With Others? With Others [email or web address] Information not available 03/13/2015 Do You Take Precautions To Prevent Distracted Driving? Yes Information not available 03/13/2015 How Often Do You Need To Have Someone Help You When You Read Instructions, Pamphlets, Or Other Written Material From Your Doctor Or Pharmacy? Sometimes [email or web address] Information not available 03/13/2015 Are You Or Anyone In Your Household A Health Care Provider Or Emergency Responder? No [email or web address] Information not available 06/18/2020 To The Best Of Your Knowledge Have You Been In Close Proximity To Any Individual Who Tested Positive For COVID-19? No [email or web address] Information not available 06/18/2020 Have You Recently Traveled To A COVID-19 High Risk Area Or Gathering In The Last 10 Days? No [email or web address] Information not available 06/18/2020 What Was The Date Of Your Most Recent Tobacco Screening? 09/28/2018 Information not available 12/21/2018 How Many Children Do You Have? 1 [email or web address] Information not available 03/13/2015 Seat Belts Used Routinely Yes [email or web address] Information not available 03/13/2015 Are You Sexually Active? Yes Information not available 03/13/2015 Do You Use Sunscreen Routinely? Yes [email or web address] Information not available 03/13/2015 Sex: Unknown Functional Status Question Answer Note LastModified by Organizat ion Details LastModified Time What is your level of alcohol consumption? Occasional [email or web address] Information not available 03/13/2015 Are you currently employed? No [email or web address] Information not available 03/13/2015 Are you able to care for yourself independently? Yes [email or web address] Information not available 03/13/2015 What is your exercise level? Occasional [email or web address] Information not available 03/13/2015 Mental Status None recorded. Family History Relationship Description Onset Age of this Age Resolved Age Notes LastModified by Organization Details LastModified Time Father Diabetes mellitus [email or web address] Not available 02/03/2014 16:23:44 Father Heart disease [email or web address] Not available 02/03/2014 16:23:44 Medical History No medical history recorded. Gynecological History Statement/Question Response Date of Last Colonoscopy Most Recent Mammogram 10/05/2011 Obstetrics History GPAL:G 0 P 0 0 0 0 Immunizations Vaccine Type Date Status Note Provider Name and Address Organization Details Recorded Time pneumococcal polysaccharide PPV23 015 completed Not Available [facility] 06/16/2019 02:21:42 Pneumococcal conjugate PCV 13 016 completed Not Available [facility] 06/16/2019 02:21:37 Tdap 010 completed Not Available [facility] 12/11/2013 13:44:14 Influenza, high-dose, trivalent, PF 018 cancelled patient objection Not Available [facility] 06/16/2019 02:22:14 Past Encounters Encounter ID Performer Location Encounter Start Date Encounter Closed Date Diagnosis/Indication Diagnosis SNOMED-CT Code Diagnosis ICD10 Code Diagnosis IMO Codes Diagnosis Note [id number] [facility] [address] [facility] [place] [address] 07/28/2011 00:00:00 [id number] autoEComm erce [address] [facility] [place] [address] 08/25/2011 00:00:00 [id number] autoEComm erce [address] [facility] [place] [address] 10/29/2011 00:00:00 [id number] autoEComm erce [address] [facility] [place] [address] 12/08/2011 00:00:00 [id number] autoEComm erce [address] [facility] [place] [address] 03/01/2012 00:00:00 [id number] autoEComm erce [address] [facility] [place] [address] 06/02/2012 00:00:00 [id number] autoEComm erce [address] [facility] [place] [address] 07/28/2012 00:00:00 [id number] autoEComm erce [address] [facility] [place] [address] 09/11/2012 00:00:00 [id number] autoEComm erce [address] [facility] [place] [address] 10/12/2012 00:00:00 [id number] autoEComm erce [address] [facility] [place] [address] 07/30/2013 00:00:00 [id number] RosinaVISHNU Carr Main Office [address] [facility] [address] [place] [address] 01/17/2014 10:49:57 01/17/2014 11:43:21 Multiple sclerosis 90384553 History of transient ischemic attack 298510116 suspected History of migraine 935495131 [id number] Cabrera pérez MD Main Office [address] [place] [address] 02/01/2014 13:51:53 02/01/2014 15:00:44 History of transient ischemic attack 180931119 pt saw neurologvanna christine in [place] dn was changed to a full strength aspirin, will see him in followup. Old myocar dial infarction 8338970 no CP or symnptoms, folloed by cardiology feels well Multiple sclerosis 00255370 seeing neurology [id number] Cabrera pérez MD Main Office [address] [address] [place] [address] 05/06/2014 14:11:46 05/06/2014 15:03:26 Old myocardial infarction 4860014 no CP or symnptoms, folloed by cardiology feels well Fractured nasal bones 928993883 were fractured in 01/10, healed well, had sinus fractures. Multiple sclerosis 28027131 seeing neurology, stable History of transient ischemic attack 453583952 on full strength aspirin, hx of TIA, doing well Allergy 118724769 nasal meds. Cough 31357353 resolved. Essential hypertension 56169624 a bit high, watch stress level [id number] Cabrera pérez MD Main Office [address] [address] [place] [address] 10/09/2014 14:04:01 10/09/2014 14:58:28 Essential hypertension 68791685 BP well controlled , continue meds Old myocar dial infarction 7324653 no CP or symnptoms, folloed by cardiology feels well Atrophic vaginitis 03506895 use vagifem Edema 215454552 continue diuretic [id number] Cabrera pérez MD Main Office [address] [facility] [address] [place] [address] 03/13/2015 14:22:41 03/13/2015 15:24:22 Adult health examination 687654543 Z00.00 pt refuses the mammogram and colonoscop y due to the discomfort associated with it. Pt is trying to keep active. Old myocar dial infarction 4162555 I25.2 no CP or symnptoms, followed by cardiology feels well, just had her device checked and an echo Multiple sclerosis 70801 007 G35 seeing neurology, stable, pt can feel a bit unsteady. richard da silva will check with ehr neurologi8 Dr Santillan about her getting the pneumonia vaccines Hyperlipidemia 24472325 E78.5 check fasting labs Essential hypertension 66696950 I10 BP well controlled , continue meds [id number] Eric Russo MD Main Office [address] [address] 03/18/2015 14:01:39 03/18/2015 15:14:25 Administration of pneumococcal vaccine 84037237 Z23 [id number] Cabrera pérez MD Main Office [address] [facility] [address] [place] [address] 08/13/2015 14:53:21 08/13/2015 15:52:32 Essential hypertension 72720957 I10 BP well controlled , continue meds Multiple sclerosis 26787 007 G35 seeing neurology, stable, pt can feel a bit unsteady. richard da silva will check with ehr neurologi8 Dr Santillan about her getting the pneumonia vaccines Hyperlipidemia 43579795 E78.5 check fasting labs Asthma 554128238 J45.90 9 Atrophic vaginitis 99460 000 N95.2 use vagifem Pain of breast 57461942 N64.4 pt with an area of fullness, she states it ahs been evaluated in past but pt refuses mammograms despite my urging I will refer to breast center,she is open to Ultrasound [id number] Cabrera pérez MD Main Office [address] [facility] [address] [place] [address] 12/10/2015 14:01:26 12/10/2015 14:36:44 Essential hypertension 39070761 I10 BP well controlled , continue meds History of transient ischemic attack 953667671 Z86.73 on full strength aspirin, hx of TIA, doing well Hyperlipidemia 47255805 E78.5 check liver tests and get fasting cholestero l next visit Old myocar dial infarction 6647797 I25.2 no CP or symnptoms, followed by cardiology feels well, just had her device checked and an echo Lymphedema 486015104 I89 .0 check lytes, continue diuretic and talk with Dr Barlow if thinks needs dose changed [id number] Cabrera pérez MD Main Office [address] [facility] [address] [place] [address] 04/02/2016 10:42:34 04/02/2016 11:42:12 Adult health examination 131137549 Z00.00 in the past pt has refused mammogram and colonoscop y due to associated discomfort , my manager medical affairs will call and talk to pt about her screenin Advance di rective discussed with patient 160153305 Z71.89 I gave pt MOLST form and proxy form, she will fill out, discuss with her proxy, we discussed the forms. Old myocar dial infarction 2897717 I25.2 no CP or symptoms, followed by cardiology feels well. will see Dr Barlow soon Essential hypertension 82872830 I10 BP well controlled , continue meds Body mass index 30+ - obesity 055704048 Z68.30 Hyperlipidemia 19674913 E78.5 E78.2 check liver tests and get fasting cholestero l next visit Lymphedema 092250780 I89 .0 check lytes, continue diuretic and talk with Dr Barlow if thinks needs dose changed Administra tion of influenza vaccine 94467694 Z23 [id number] Cabrera pérez MD Main Office [address] [facility] [address] [place] [address] 09/09/2016 10:11:08 09/09/2016 11:12:58 Essential hypertension 72160292 I10 BP well controlled , continue meds Old myocar dial infarction 8499512 I25.2 no CP or symptoms, followed by cardiology feels well. will see Dr Barlow Multiple sclerosis 41927 007 G35 pt sees neurology in [place], all is stable, not on meds Hyperlipidemia 42177279 E78.5 check liver tests today Asthma 153891226 J45.90 9 well controlled [id number] VISHNU Fraire Main Office [address] [address] 09/24/2016 10:57:45 09/24/2016 11:58:34 Asthma 335437558 J45.909 refill provided Upper resp iratory infection 54380086 J06.9 abx and cough med as prescribed , patient with long list of allergies but did have cefuroxime written as one she can take. hydration, rest. Plantar fasciitis 814117 003 M72.2 Supportive shoes , no barefoot walking, may use a silicon heel insert, stretching , heat as needed, f/u with podiatry/ PT as needed [id number] Cabrera pérez MD Main Office [address] [address] 12/15/2016 08:25:49 12/15/2016 09:33:13 Foot pain 51624885 M79.671 pt to see podiatry, ? neuroma she will arrange [id number] Cabrera pérez MD Main Office [address] [address] 03/10/2017 10:02:09 03/10/2017 11:03:36 Essential hypertension 39565275 I10 BP well controlled , continue meds Hyperlipidemia 05639912 E78.5 check fasting lipid Old myocar dial infarction 5379372 I25.2 no CP or symptoms, followed by cardiology feels well Multiple sclerosis 38886 007 G35 pt sees neurology in [place], all is stable, not on meds Long-term drug therapy 958404770 Z79.899 long talk with pt explaining again I strongly prefer pt to come off estrogen completely , she did lower it to .5mg from 1mg and states she is getting more migraines. I explained estrogen has thrombotic potential and pt has a hx of an IL, and its fpc concern of breast cancer risk. [id number] Cabrera pérez MD Main Office [address] [place] [address] 08/03/2017 12:33:54 08/03/2017 13:39:11 Abdominal pain 51282784 R10.9 right upper quadrant discomfort , I reviewed CT done in [facility] with pt, biliary sludge, ? pain due to biliary functional problem, will set up GI appt, pt to eat low fat diet Computed t omography result abnormal 769687515 R93.8 finding in either adnexal area or in bowel, unclear by CT, they recommend US and I will start there, pt states she is s/p hysterecto my but ovaries in, is overdue for colonoscop y since pt has not wanted to get one, will start with US but will also be seeing GI and at some point pt should strongly consider colonoscop y Atrial fibrillation 4943 6004 I48.91 new for pt, on xarelto and seen by cardiology , rate still up, is on increased dose of beta lucita . Old myocar dial infarction 6984586 I25.2 no CP or symptoms, followed by cardiology feels well . new afib cardiology involved [id number] Cabrera pérez MD Main Office [address] [facility] [place] [address] 08/18/2017 09:30:16 08/18/2017 10:11:06 [id number] Cabrera pérez MD Main Office [address] [place] [address] 08/19/2017 10:09:41 08/19/2017 11:14:52 Respiratory syncytial virus infection 11940433 B97.4 still quite wheezy, needs ongoing steroids so pt will take slow taper of decadron, we called in a lower dose than originally prescribed Bronchospasm 7080136 J98 .01 see above Essential hypertension 47182792 I10 BP well controlled , continue meds Old myocar dial infarction 8049580 I25.2 no CP or symptoms, followed by cardiology feels well . new afib cardiology involved Atrial fibrillation 4943 6004 I48.91 new for pt, on xarelto and seen by cardiology , rate still up, is on increased dose of beta lucita from DR Barlow, I called to speak with DR Barlow but out until tuesday, he will call and I will discuss other ways to lower heartrate as that seems to be a contributo r to the dyspnea [id number] Cabrera pérez MD Main Office [address] [facility] [address] [place] [address] 08/25/2017 14:31:30 08/25/2017 15:09:10 Atrial fibrillation 09587000 I48.91 pt still with elevated heartrate, she is on xarelto and cardiology wrote for amiodarone though she has not started yet, will call cardiology and arrange getting on med, Cardiomyopathy 74455926 I42.9 reduced EF . though due to tachycardi a from afib, will lower heartrate, work with cardiology Old myocar dial infarction 0693768 I25.2 no CP or symptoms, followed by cardiology feels well . new afib cardiology involved Hyperlipidemia 54148656 E78.5 check fasting lipid [id number] Cabrera pérez MD Main Office [address] [facility] [address] [place] [address] 08/30/2017 13:58:27 08/30/2017 14:58:02 Abdominal discomfort 36565590 R10.9 ? of possiblili ty of a ventral hernia by exama quin hx, pt to see general surgery for eval, to ER if pain returns and lasts more than a few hours or escalates. Atrial fibrillation 4943 6004 I48.91 pt feeling a bit better with rate in the 90's still in afib today, on xarelto, sees cardiology later today Hyperlipidemia 38165514 E78.5 continue med Essential hypertension 66250395 I10 BP well controlled , continue meds [id number] Velasquez Vidales PA-C Main Office [address] [facility] [address] [place] [address] 09/01/2017 11:14:29 09/01/2017 12:04:04 Herpes zoster 2384905 B02.9 h/o multiple allergies including gabapentin and codeine - will give trial of dilaudid at hs and rec. calamine topically - pt hasn't slept d/t shingles pain, worried that lyrica may not get approved for several days so try this in meantime - concerned that pt likely to get sig PHN d/t shingles burden (large lesions/di stribution ) [id number] Cabrera pérez MD Main Office [address] [facility] [address] [facility] [place] [address] 09/12/2017 08:39:15 09/19/2017 08:16:26 [id number] Cabrera pérez MD Main Office [address] [facility] [address] [place] [address] 10/04/2017 15:07:56 10/04/2017 15:39:45 Atrial fibrillation 15842037 I48.91 was cardiovert ed, is in sinus, and heartrate 70, on meds followed by cardiology Old myocar dial infarction 8890792 I25.2 no CP or symptoms, followed by cardiology feels well . new afib but back in sinus cardiology involved Essential hypertension 50832963 I10 BP well controlled , continue meds Anticoagul ant excess without bleeding 751224295 D68.8 some bruising, continue [id number] Cabrera pérez MD Main Office [address] [facility] [address] [facility] [place] [address] 02/06/2018 10:48:31 02/06/2018 11:45:21 Essential hypertension 03743762 I10 BP is stable on change to irbesartan Multiple sclerosis 93581 007 G35 pt sees neurology in [place], feels stable, has not had a hug in over a year which she gets with the MS. Mitral belén ve regurgitation 92344751 I34.0 pt is not interested in the proposed mitral valve replacemen t. we discussed her keeping an open mind when meeting with new cardiologi st Dr Fallon (Dr Barlow retired) and listening to the risks and benefits. Atrial fibrillation 4943 6004 I48.91 was cardiovert ed, is in sinus, and heartrate 70, on meds followed by cardiology , is feeling better, is in sinus today [id number] Velasquez Vidales PA-C Main Office [address] [facility] [address] [facility] [place] [address] 03/23/2018 14:38:51 03/23/2018 16:04:13 Influenza vaccine needed 8667002437 106 Z23 Acute sinusitis 35525421 J01.90 if no sig help jaden gusman, then consider cefuroxime which she can tolerate (multiple drug allergies) . rec probiotics while on abx [id number] Cabrera pérez MD Main Office [address] [facility] [address] [place] [address] 05/01/2018 12:34:20 05/01/2018 13:41:11 Atrial fibrillation 92833651 I48.91 was cardiovert ed, on blood thinner and amiodarone . followed by Dr. Fallon. in sinus today Right flank pain 1026431 09 R10.9 it resolved, possible kidney stone but pain is gone, no eval unless pain returns. Essential hypertension 97186328 I10 BP is stable on change to irbesartan Hyperlipidemia 18585967 E78.5 continue med and check fasting [id number] Cabrera pérez MD Main Office [address] [facility] [address] [place] [address] 08/28/2018 14:06:58 08/28/2018 15:15:52 Adult health examination 972415150 Z00.00 in the past pt has refused mammogram and colonoscop y pt with many questions and a list of them we reviewed today is getting a bit stronger but is not very active. Multiple sclerosis 41812 007 G35 pt feels MS flared after cardiovers ion about a year ago Hypothyroidism 88382568 E03.9 check labs Atrial fibrillation 4943 6004 I48.91 in sinus, Dr Fallon following, stated in last visit note pt needs to remain on Xarelto. Hyperlipidemia 60389574 E78.5 continue med Essential hypertension 70673563 I10 BP is stable on change to irbesartan Automatic implantable cardiac defibrillator in situ 163064498 Z95.810 pt needs the generator replaced. I urged pt to have this done. Bleeding from nose 65435 6005 R04.0 nightly, will see ENT, needs Xeralto, exam with bilateral irritated and excoriated areas on lateral aspect of nares, will use vaseline and nasal saline [id number] Andrew King MD Main Office [address] [facility] [address] [place] [address] 09/20/2018 10:35:00 09/20/2018 12:12:35 Nausea 249162255 R11.0 cont mylanta as dir, consider berhane tea or flat berhane maraynn, or zofran if worse check labs for further eval Bradycardia 19821871 R00 .1 see below re: cardiac meds - likely somewhat worse d/t recent illness but pt is not in shock (not high HR / low bp) Atrial fibrillation 4943 6004 I48.91 cont meds, f/u c card - encouraged her to call card re: bradycardi a *will fwd this note to card - plz call pt if she should lower some of her cardiac meds - thx!* Automatic implantable cardiac defibrillator in situ 726629311 Z95.810 Diarrhea 90567879 R19.7 rec BRAT diet - bananas, rice, applesauce , toast h/o cdiff ~ 5 yrs ago, no recent abx check stool studies Edema of l ower extremity 713362949 R60.0 new over past few days, good today cont diuretics as dir Hypothyroidism 70786010 E03.9 recently increased supp - pending recheck next month [id number] Andrew King MD Main Office [address] [facility] [address] [place] [address] 09/28/2018 13:24:49 09/28/2018 14:36:04 Nausea 073246209 R11.0 resolved Diarrhea 14027862 R19.7 rec cont BRAT diet - bananas, rice, applesauce , toast neg stool studies - will check for celiac no sig help c imodium - rec citrucel and will get gi eval - ? microscopi c colitis Bleeding from nose 16237 6005 R04.0 resolved, pt expressed she wanted to cx her ent eval - contact our personnel scheduler Hypokalemia 90185740 E87 .6 resolved c low dose potassium supp - cont to take qd Hypothyroidism 40765567 E03.9 recently increased supp - pending recheck next month [id number] Andrew King MD Main Office [address] [facility] [address] [place] [address] 12/22/2018 10:27:28 12/22/2018 10:51:25 [id number] Andrew King MD Main Office [address] [facility] [address] [place] [address] 12/25/2018 14:41:16 12/25/2018 15:25:32 Automatic implantable cardiac defibrillator in situ 424925998 Z95.810 Pt has followup with Dr Fallon tomorrow. She is doing well at home, no complaints or concens, feels to be at baseline. She is aware to call if any chest pain, SOB, edema or if any firing of the ICD Essential hypertension 99828795 I10 BP mildly elevated at ov today, will be recheck tomorrow Cardiomyopathy 37993434 I42.9 Non ischemic cardiomyop athy followed by cardiology [id number] Cabrera pérez MD Main Office [address] [facility] [address] [place] [address] 06/19/2019 11:08:23 06/19/2019 12:18:23 Gastroesophageal reflux disease 286758620 K21.9 new complaint of pt, refulx, belching, mild mid epigastric discomfort , no vomiting, pepto bismol helps, will do a 1 month trial of PPI bid, return in 1 months, avoid nsaids, if not improved will refer to GI Automatic implantable cardiac defibrillator in situ 242776232 Z95.810 pt had this replaced 12/15 Essential hypertension 02845827 I10 BP stable, pt stopped KCL will check level Hypothyroidism 54118903 E03.9 check labs Anticoagul ant excess without bleeding 464072475 D68.8 on for afib Multiple sclerosis 84991 007 G35 pt feels MS flared after cardiovers ion about a year ago [id number] Andrew King MD Main Office [address] [facility] [address] [place] [address] 07/05/2019 10:25:21 07/05/2019 11:47:44 Nausea 467612899 R11.0 stay on emeprazole for now, will check additional labs and send to GI to see if EGD might be needed to rule out ulcer. Nausea worse with potassium, will check lab today to see if we might be able to stay off potassium. [place] diet Atrial fibrillation 4943 [address] Fallon, no recent problems. Cardiomyopathy 68149446 I42.9 Non ischemic cardiomyop athy followed by cardiology Hypokalemia 65434077 E87 .6 checking potassium today Hypothyroidism 56764298 E03.9 TSH elevated would increase levothyrox ine to 75 mcg daily and recheck TSH in 6 weeks [id number] Cabrera pérez MD Main Office [address] [address] [place] [address] 07/27/2019 12:42:10 07/27/2019 13:33:37 Essential hypertension 99406194 I10 BP stable, pt does not take KCL since she says it bales a hole in her stomach . I check it monthly, yesterday value 3.7 pt is aware it is on the low end of nl and needs ot increase k in food as she will not take replacemen t Atrial fibrillation 4943 6004 I48.91 in sinus, Dr Fallon following Automatic implantable cardiac defibrillator in situ 403498531 Z95.810 pt had this replaced 12/15 recently saw cardiology Hypothyroidism 62819634 E03.9 will lower thyroid dose to 50mcg a day, Free T4 is too high despite nl TSH, pt will be seeing endo. [id number] Cabrera pérez MD Main Office [address] [address] [place] [address] 08/16/2019 10:25:11 08/16/2019 11:57:07 Hypokalemia 75904779 E87.6 I urged pt to take a KCL daily, read her her trend of the K level going below normal and told pt she puts herself at risk of a fatal arrthymia due to low K and hx of IL, she understood and said she would start. Hypocalcemia [id number] E83 .51 recent calcium level mildly low, I asked my MA to have this faxed to pts [facility] endo doc and call and talk to nurse and ask them to take over the eval of calcium, pt just saw endo for thyroid lab abn. I explained this to pt and asked her to call her endo doc tomorrow and ask them to help with her low Calcium, pt also had not been eating well, I will let endo take it from here but may have a low albumin due to recent poor intake pt was feeling well [id number] Cabrera pérez MD Main Office [address] [address] [place] [address] 11/02/2019 13:44:37 11/02/2019 14:43:24 Hypothyroidism [id number] E03.9 nl TSH, though pt states she has mostly stopped taking her thyroid med since she thought it was worsening her hair quality, I advised her to restart Upper abdominal pain [phone] [id number] R10.10 new problem to me. Pt states this has been on and off over months, nausea, very poor nutrition, has lost weight, will get CT of abd and pelvis to look for mass, add liver tests to yesterdays labs and refer to DR Castillo for eval, continue PPI, recheck in 1 month, very different presentati on of pt today,s he is usually very lively, she is subdued, looks chronicall y ill today [id number] Cabrera pérez MD Main Office [address] [facility] [address] [facility] [place] [address] 12/06/2019 14:24:52 12/06/2019 15:20:22 Tremor [id number] R25.1 new problem pt brings up, I recc she see an neurologis t but she is not interested , wants to watch it. Automatic implantable cardiac defibrillator in situ [id number] Z95.810 pt had this replaced 12/15 recently saw cardiology Essential hypertension [id number] I10 BP stable, pt does not take KCL since she says it bales a hole in her stomach . I check it monthly, yesterday value 3.7 pt is aware it is on the low end of nl and needs ot increase k in food as she will not take replacemen t Hyperlipidemia 56323462 E78.5 continue med Multiple sclerosis 40089 007 G35 pt feels MS flared after cardiovers ion about a year ago Abdominal pain 22767705 R10.9 epigastric , recent CT of abdomen is negative, I urged pt to see GI, needs eval [id number] Cabrera pérez MD Telehealt [facility] [address] [facility] [place] [address] 06/18/2020 09:00:58 06/19/2020 12:06:20 Plantar fasciitis of right foot [id number] M72.2 was in ER with severe acute right foot pain. needs splint and PT. pt feels unsafe leavinghou se, will try to arrange in home PT initially Gastroesop hageal reflux disease [id number] K21.9 no help with omeprazole 20mb bid, pt to try pantoprazo le [id number] Cabrera pérez MD Main Office [address] [facility] [place] [address] 08/07/2020 12:41:04 08/07/2020 13:32:39 Epigastric pain 91220097 R10.13 see hpi, continue PPI and will get US to look at gallbladde r (nl GB/no stones 11/16 Ct scan) and we will set up appt with GI Dr Francisco, she should get an EGD Right uppe r quadrant pain [id number] R10.11 check US and labs Automatic implantable cardiac defibrillator in situ [id number] Z95.810 pt had this replaced 12/15 recently saw cardiology Sinus bradycardia 183257 05 R00.1 EKG without acute changes Health Concerns Section Related Observation LastModified by Organization Detai ls LastModified Time None Recorded Concern Status LastModified by Organization Details LastModified Time None Recorded Advance Directives Directive None Recorded Payers Insurance Date Sequence Insurance Name Policy Number Policy Osorio Covered Member ID Osorio Member ID Guarantor Name 08/07/2020 2 [place] [id number] Brigette Criss [id number] Brigette Criss 08/07/2020 1 [place] [employer] Brigette Criss [id number] Brigette Criss 10/09/2014 1 [facility] Branden Umanzorjennifer [id number] Brigette Criss Notes Date Note Type Note Provider Name and Address Organization Details Recorded Time 08/16/2019 text/html This is a phone visit due to covid 19 precautions. Pt has refused KCL in the past but I stressed to her today she needs to take at least one pill to keep her K in the nl range. I also informed the pt her Calcium is low, see below for plan. PT is feeling better, still with some nausea. Caberra Glading-Dilore nzo null, [facility] 08/16/2019 11:30:56 11/02/2019 text/html PT is here for a follow-up. She is not doing well with complaints of nausea adn abdominal pain. SHe is unable to eat well due to this, notes she can eat waffles, cream of wheat, pepto bismol. SHe is on a PPI which she feels helped some. Initially the patients complaint was nausea but over the months she has developed mid abdominal pain and has lost weight. She has lost 10lbs since 05/2019, 20lbs since 11/2018. no vomiting. Her hair texture is poor, feels her hair thins. Stress at home Cabrera hernandez [facility] 11/02/2019 14:47:44 12/06/2019 text/html PT is here for a followup of abdominal pain, htn, and notes a new tremor. She has MS that is not very active. Cabrera hernandez [facility] 12/20/2019 17:33:59 06/18/2020 text/html This is a telehealth visit due to Covid 19. Pt right foot pain due to plantar fasciatis.Xray was negative, was in ER 06/07/20 and had a negative xray. Pt is using crutches, she wants to start PT but does not feel she can get out of the house. Pt also with GERD that is not improved by omeprazole 20bid. Cabrera hernandez [facility] 06/18/2020 13:57:56 08/07/2020 text/html PT is here with epigastric compliants as well as RUQ pain. PT denies vomiting, or fevers. She i son pantoprazole 40mg which had helped in past but is no lover working, PT had a Ct of abd 11/16 that was negative, saw Dr Francisco (GI) in 03/18 and was feeling better so no EGD was done. PT notes over the past few months pain is worse, only eats cream of wheat, and pepto bismol. Cabrera hernandez [facility] 08/07/2020 13:46:23 OBGyn Episode No OBEpisode recorded.
== END 2025-05-09 13:09 | disposition home or self-care (01) ==
LOC: HO.HSM 12:04
PROVIDERS: PCP Internal Medicine; Referring Provider Internal Medicine; Visit Provider Registered Nurse
DX: R55 Syncope and collapse (principal); R25.1 Tremor, unspecified; Z86.79 Personal history of other diseases of the circulatory system; Z86.73 Personal history of transient ischemic attack (TIA), and cerebral infarction without residual deficits; G31.84 Mild cognitive impairment of uncertain or unknown etiology
CPT/HCPCS: 99215

== ENCOUNTER → 2025-05-09 12:03 | Outpatient (BNVA) | payer MEDICARE, SELFPAY | PROVIDERS: PCP Internal Medicine; Referring Provider Internal Medicine; Visit Provider Registered Nurse | DX: R55 Syncope and collapse (principal); R25.1 Tremor, unspecified; G31.84 Mild cognitive impairment of uncertain or unknown etiology; Z86.79 Personal history of other diseases of the circulatory system; Z86.73 Personal history of transient ischemic attack (TIA), and cerebral infarction without residual deficits | CPT/HCPCS: 99212 ==